=== PATIENT | female | born 1960 | race Caucasian/White ===

== ENCOUNTER → 2016-04-20 | Outpatient (CLI) | payer MEDICARE, MEDICAID ==
[~2016-04-20] MED LIST: ADVA230A INH; ALEN70TA39 PO; ASPI81TA31 OR; COMBAER6 INH; DILT1TAB12 PO; MELOPOW OR; PREG50CA OR; SIMV40TA2 OR; SIMV80TA PO; TYLENOL PM OR; VIT D 2000 OR; VITA2000 PO
--- NOTE | 2016-04-20 14:04 | REP ---
CT of the chest without IV contrast: Comparisons are the low-dose lung screening CT dated 01/27/[address] of the chest on 04/24/2012. There is a nodule in the left upper lobe on image 27 measuring 6 mm in diameter today, 5 mm 01/27/2016. There is a 13 mm lung nodule in the lingula on image 53. This measured 13 mm on 01/27/2016. The tiny nodule identified in the lingula slightly inferior to the 13 mm nodule on01/27/2016 appears to be artifact from interstitium surrounding a bulla on the study today. There is chronic parenchymal scarring medially in the right middle lobe, unchanged from 01/27/2016. There are no infiltrates or effusions. There are numerous small bulla throughout the lung woodruff bilaterally particularly in the upper lobes, compatible with bullous emphysema, unchanged. There is no mediastinal adenopathy. In the absence of IV contrast the study is insensitive for hilar adenopathy. There is no axillary adenopathy. The unenhanced thoracic aorta is unremarkable. Cardiac size is normal. There is no pericardial effusion. The visualized upper abdominal contents are unremarkable. There is no adrenal mass. Impression: 6 mm right upper lobe nodule. 13 mm nodule in the lingula. Chronic parenchymal scarring medially in the right middle lobe. Bullous emphysema. No acute infiltrate or effusion. No adenopathy. Consideration might be given to PET scan for further evaluation. Signed by Rajiv Rae MD 04/20/2016 01:56 P
== END ==
LOC: M RAD 12:37
PROVIDERS: ATTEND Internal Medicine Pulmonary Disease
DX: R91.8 Other nonspecific abnormal finding of lung field (principal); J43.9 Emphysema, unspecified

== ENCOUNTER → 2016-05-25 | Outpatient (REF) | payer MEDICARE, MEDICAID ==
[2016-05-25 14:02] LABS: BASO % 0.3 % (0.0-1.0); EOS # 0.2 K/mm3 (0.0-0.50); EOS % 2.7 % (0.0-3.0); LARGE UNSTAINED CELL # 0.1 K/mm3 (0.0-0.4); LARGE UNSTAINED CELL % 1.4 % (0.0-4.0); LYMPH # 1.3 K/mm3 (1.5-4.5); LYMPH % 15.6 % (24.0-44.0); MEAN CORPUSCULAR HEMOGLOBIN 31.1 pg (27.0-33.0); MEAN CORPUSCULAR HGB CONC 33.9 g/dl (32.0-36.5); MEAN CORPUSCULAR VOLUME 91.7 fl (80.0-96.0); MONO # 0.3 K/mm3 (0.0-0.8); MONO % 3.7 % (0.0-5.0); NEUTROPHILS # 6.1 K/mm3 (1.8-7.7); NEUTROPHILS % 76.4 % (36.0-66.0); PLATELET COUNT, AUTOMATED 212 k/mm3 (150-450); RED CELL DISTRIBUTION WIDTH 12.5 % (11.5-14.5)
[2016-05-25 14:04] LABS: ALBUMIN 4.4 GM/DL (3.2-5.2); ALBUMIN/GLOBULIN RATIO 1.42 (1.00-1.93); ALKALINE PHOSPHATASE 82 U/L (45-117); ALT/SGPT 39 U/L (12-78); ANION GAP 9 MEQ/L (8-16); AST/SGOT 26 U/L (15-37); BILIRUBIN,TOTAL 0.4 MG/DL (0.2-1.0); BLOOD UREA NITROGEN 14 MG/DL (7-18); CALCIUM LEVEL 9.2 MG/DL (8.5-10.1); CARBON DIOXIDE LEVEL 28 MEQ/L (21-32); CHLORIDE LEVEL 105 MEQ/L (98-107); CHOLESTEROL LEVEL 218 MG/DL (<200); CREATININE FOR GFR 0.82 MG/DL (0.55-1.02); GLOMERULAR FILTRATION RATE > 60.0 (>51); GLUCOSE, FASTING 108 MG/DL (70-105); MAGNESIUM LEVEL 2.1 MG/DL (1.8-2.4); SODIUM LEVEL 142 MEQ/L (136-145); TOTAL PROTEIN 7.5 GM/DL (6.4-8.2); TRIGLYCERIDES LEVEL 75 MG/DL (<150)
== END ==
LOC: M SFHCPLAZ 12:15
PROVIDERS: ATTEND Family Medicine
DX: E78.2 Mixed hyperlipidemia (principal); I10 Essential (primary) hypertension; K21.9 Gastro-esophageal reflux disease without esophagitis; E55.9 Vitamin D deficiency, unspecified
CPT/HCPCS: 36415; 80053; 80061; 82306; 83735; 83970; 85025; 86677; G0463

== ENCOUNTER → 2016-07-28 | Outpatient (CLI) | payer MEDICARE, MEDICAID ==
--- NOTE | 2016-07-28 14:15 | REP ---
CT of the chest without IV contrast: Comparisons are the chest CT of 03/01/20202078 low-dose lung screening chest CT of 01/27 2016. There is a left upper lobe lung nodule on image 27 today measuring 7 mm (6 mm and 04/20/2016, 5 mm 01/27/2016). There is a nodule in the lingula on image 54 measuring 13 mm (13 mm, 01/27/2016 and 13 mm 04/20/2016). Just inferior to this in the lingula on image 56 there is interstitial vasculature surrounding a bulla within artifactual appearance of a nodular density. This is unchanged from both prior studies. In the medial segment of the right middle lobe. There is chronic parenchymal scarring, unchanged from both prior studies. There are no acute infiltrates or effusions. Multiple lung bullae are again identified, particularly in the upper lobes, unchanged, compatible with bullous emphysema. There is no mediastinal adenopathy. This is unchanged. In the absence of IV contrast the study is insensitive for hilar adenopathy. There is no axillary adenopathy. The unenhanced thoracic aorta is unremarkable and unchanged. Cardiac size is normal, unchanged. The visualized upper abdominal contents are unremarkable and unchanged. There is no adrenal mass. Impression: The nodule in the left upper lobe on image 27 appears to be gradually enlarging. The nodule in the lingula is unchanged in size. There is stable chronic parenchymal scarring in the medial segment of the right middle lobe. Bullous emphysema is again identified. There is no adenopathy, acute infiltrate or effusion. Signed by Rajiv Rae MD 07/28/2016 02:06 P
== END ==
LOC: M RAD 11:25
PROVIDERS: ATTEND Internal Medicine Pulmonary Disease
DX: R91.8 Other nonspecific abnormal finding of lung field (principal); J43.9 Emphysema, unspecified

== ENCOUNTER → 2016-08-10 | Outpatient (REF) | payer MEDICARE, MEDICAID ==
[2016-08-10 14:10] LABS: INR 0.86
[2016-08-14 00:06] LABS: BLASTOMYCES ANTIBODY LEVEL Negative (Neg:<1:1); CRYPTOCOCCUS ANTIGEN SER Negative (Negative); HISTOPLASMOSIS ANTIBODY Negative (Neg:<1:1)
[2016-08-18 08:50] LABS: COCCIDIOMYCOSIS ANTIBODY NEGATIVE (NEGATIVE)
== END ==
LOC: M LAB REF 13:32
PROVIDERS: ATTEND Internal Medicine Pulmonary Disease
DX: R91.8 Other nonspecific abnormal finding of lung field (principal)

== ENCOUNTER → 2016-08-26 | Outpatient (CLI) | payer MEDICARE, MEDICAID ==
[~2016-08-26] MED LIST changes: +LIDOCAINE 1% MDV 20ML VIAL As Ordered ONE
--- NOTE | 2016-08-26 10:24 | REP ---
PA CHEST X-RAY: Single view inspiration. HISTORY: Post needle biopsy left upper lobe nodule. Comparison study April 24, 2012. FINDINGS: There is a large parenchymal opacity at the level of the biopsy site in the left midlung zone 8.8 cm in greatest diameter consistent with a post biopsy parenchymal hemorrhage. There is no evidence of pneumothorax. Heart is not enlarged. Otherwise no acute disease. IMPRESSION: Large alveolar opacity at the biopsy site representing parenchymal hemorrhage. Recommend 2-hour followup repeat chest x-ray. No evidence of pneumothorax. Signed by Terry Kang MD 08/26/2016 03:31 P
--- NOTE | 2016-08-26 12:39 | REP ---
CHEST X-RAY: SINGLE VIEW HISTORY: Status post lung biopsy followup. Comparison study is from 9:57 a.m. on this date. FINDINGS: The alveolar infiltrate representing post-biopsy parenchymal hemorrhage is again seen in the left mid lung zone. This has not progressed. There is no visible pneumothorax. Pleural angles are sharp. The lungs remain somewhat hyperinflated. IMPRESSION: Stable left upper lobe needle biopsy associated parenchymal hemorrhage. No pneumothorax seen. Signed by Terry Kang MD 08/26/2016 03:33 P
--- NOTE | 2016-08-26 14:05 | REP ---
CT GUIDED LEFT LUNG BIOPSY: The procedure was performed by Taina HNASON under the direct supervision of Dr. Kang. The procedure along with its risks, benefits and complications were discussed with the patient. Informed consent was obtained both verbally and written. The patient was placed in an supine position on the CT table. The left lung lesion was localized under CT guidance. A procedural time-out was performed to identify the correct patient, appropriate site and appropriate procedure. The patient was prepped and draped in the usual sterile fashion. 1% Xylocaine was administered to the biopsy site to achieve anesthesia. The biopsy guide needle was inserted under CT guidance and advanced to the site of the lesion. The imo.im biopsy device was passed through the guide needle and four core samples were obtained. The biopsy guide needle was then removed, hemostasis was achieved and a soft dressing was applied to the entry site. Post procedural imaging revealed a moderate amount of parenchymal hemorrhage in the lingular segment left upper lobe adjacent to the biopsy. Follow-up chest x-ray is performed. . The patient tolerated the procedure well and was sent to the recovery area for post procedural observation. The patient was discharged home with appropriate post procedural orders. Reviewed by MARGIE Tracey 08/26/2016 02:13 PEdited and Signed by Terry Kang MD 08/26/2016 03:42 P
== END ==
LOC: M RADPRO 08:04
PROVIDERS: ATTEND Internal Medicine Pulmonary Disease
DX: C34.12 Malignant neoplasm of upper lobe, left bronchus or lung (principal); F17.218 Nicotine dependence, cigarettes, with other nicotine-induced disorders; G89.29 Other chronic pain; E78.00 Pure hypercholesterolemia, unspecified; M47.812 Spondylosis without myelopathy or radiculopathy, cervical region; R42 Dizziness and giddiness; J44.9 Chronic obstructive pulmonary disease, unspecified; Z79.899 Other long term (current) drug therapy; Z79.82 Long term (current) use of aspirin; Z79.51 Long term (current) use of inhaled steroids; Z88.8 Allergy status to other drugs, medicaments and biological substances

== ENCOUNTER → 2016-08-27 | Outpatient (CLI) | payer MEDICARE, MEDICAID ==
[~2016-08-27] MED LIST changes: -LIDOCAINE 1% MDV 20ML VIAL As Ordered ONE
--- NOTE | 2016-08-27 11:20 | REP ---
Clinical: Hemoptysis. Technique: PA and lateral. Comparison: 08/26/2016. Findings: Consolidation involving the basilar left upper lobe is appreciated. Remainder of lung woodruff are clear. No pneumothorax. Mediastinum and cardiac silhouette normal. Impression: Basilar left upper lobe infiltrate. Signed by Teja Tobar MD 08/27/2016 11:10 A
== END ==
LOC: M RAD 10:00
PROVIDERS: ATTEND Internal Medicine Pulmonary Disease
DX: R04.2 Hemoptysis (principal)

== ENCOUNTER → 2016-09-01 | Outpatient (CLI) | payer MEDICARE, MEDICAID ==
--- NOTE | 2016-09-01 14:52 | REP ---
Clinical: Hemoptysis . Comparison: 08/27/2016 . Technique: PA and lateral. Findings: The mediastinum and cardiac silhouette are normal. The lung woodruff demonstrate chronic interstitial changes without acute consolidation, effusion, or pneumothorax. The skeletal structures are intact and normal. Impression: 1. No acute cardiopulmonary process. Signed by Teja Tobar MD 09/01/2016 02:43 P
== END ==
LOC: M SMT 14:14
PROVIDERS: ATTEND Internal Medicine Pulmonary Disease
DX: R04.2 Hemoptysis (principal)

== ENCOUNTER → 2016-09-08 | Outpatient (CLI) | payer MEDICARE, MEDICAID ==
--- NOTE | 2016-09-08 21:25 | REP ---
PET/CT: History: Restaging malignant neoplasm left upper lobe. The patient underwent CT guided needle biopsy for left upper lobe nodule on August 26, 2016. Diagnosis adenocarcinoma. Comparisons: Chest CT study dated July 28, 2016. TECHNIQUE: 54 minutes following the intravenous injection of a 9.9 mCi dose of F-18 FDG, three-dimensional PET scintigraphy is acquired from the skull base to the proximal thighs. Triplanar noncontrast CT scanning is acquired through the same anatomic range for attenuation correction, and image registration with scan parameters optimized to minimize radiation exposure to the patient. PET scintigraphy and CT datasets were fused and displayed on a workstation with multiplanar and projection display capability. PET/CT Findings: The patient's biopsy-proven left upper lobe spiculated nodule shows hypermetabolic uptake with maximum standard uptake value of 5.2. There is a second focus of discernible FDG accumulation in the smaller nodule in the left upper lobe higher up in the chest. This nodule is only 7 mm in size. Maximum standard uptake value in it is 1.7. This must be considered potentially suspicious as well, especially given its small size. There is an additional augustina focus of hypermetabolic uptake in the right middle lobe bronchus at the right anteroinferior hilus. Maximum standard uptake value here is 5.4 and the bronchus appears to be obstructed on accompanying CT. This is suspicious as well. No other abnormal hypermetabolic uptake is seen in the thorax. No adrenal hypermetabolic uptake is seen. In the abdomen and pelvis normal distribution of FDG tracer is seen. No abnormal hypermetabolic uptake is seen in the abdomen or pelvis. Impression: There are three suspicious areas of uptake in the chest cavity. One of these corresponds to the biopsy proven adenocarcinoma. The other is in the smaller known left upper lobe nodule. The third is in an obstructed right middle lobe bronchus at the right hilar level. These are all considered suspicious for malignancy. Signed by Terry Kang MD 09/09/2016 09:31 A
== END ==
LOC: M PLARAD 08:27
PROVIDERS: ATTEND Internal Medicine Pulmonary Disease
DX: C34.12 Malignant neoplasm of upper lobe, left bronchus or lung (principal)
CPT/HCPCS: 78815; A9552

== ENCOUNTER → 2016-09-09 | Outpatient (CLI) | payer MEDICARE, MEDICAID ==
--- NOTE | 2016-09-09 16:08 | RADONC ---
RADIATION ONCOLOGY CONSULTATION NOTE DATE: 09/09/2016 CHART NUMBER: DIAGNOSIS: Left lung cancer. STAGE: IIIB, T4N3M0 verus stage IV, [id number]. ECOG PERFORMANCE STATUS: 0. CONSULTATION NOTE: Ms. 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 HISTORY OF PRESENT ILLNESS: The patient was in her usual state of health until low dose screening lung scan was done on 01/27/2016 that showed a suspicious 13 mm nodule in the lingular segment of the left upper lobe and a second new 5 mm nodule in the left upper lobe elsewhere. On 08/26/2016 the patient underwent a CT guided left lingular lung nodule biopsy and pathology revealed a moderate to poorly differentiated adenocarcinoma of the lung. The tumor showed PD-L1 expression. A PET scan was done on 09/08/2016 and the preliminary report shows three suspicious areas in the chest cavity. One corresponds to the biopsy proven adenocarcinoma. The other is a smaller left upper lobe nodule which was also known. The third is an obstructed right middle lobe bronchus at the right hilar level. These were all considered suspicious for malignancy. PAST MEDICAL HISTORY: The patient's past medical history is positive for hypertension, emphysema, arthritis, and bronchitis. ALLERGIES: The patient is allergic to LYRICA and CHANTIX. SOCIAL HISTORY: The patient smokes one pack of cigarettes per day for the last 39 years. She does not abuse alcohol. FAMILY HISTORY: The patient's family history is positive for a paternal grandmother with throat cancer, a paternal cousin with stomach cancer, a maternal aunt with esophageal cancer, a paternal uncle with stomach cancer, and a paternal aunt with anal cancer. She also has cousins with lung cancer. REVIEW OF SYSTEMS: The patient's review of systems is positive for some vertigo as well as physical limitations secondary to decreased energy and generalized weakness. She does have shortness of breath. She is not using nasal oxygen. She denies nausea, vomiting, fevers, chills, night sweats, diplopia, headaches, anxiety, or depression, anorexia, weight loss, visual disturbances, chest pain, bowel difficulties, bone pain, or neurologic problems. PHYSICAL EXAMINATION: The patient is a well-developed, well-nourished, female in no acute distress. HEENT exam is normocephalic, atraumatic. Extraocular movements are intact. There is no palpable cervical, supraclavicular, infraclavicular, axillary, or inguinal lymphadenopathy present. Lungs are clear to auscultation and percussion. Heart has a regular rate and rhythm. Abdomen is benign with no hepatosplenomegaly, masses, or tenderness. Skeletal examination reveals no tenderness to pressure or percussion of the bony skeleton. Extremities reveal no clubbing, cyanosis, or edema. Neurologic exam is grossly intact, as is the remainder of the physical examination. ASSESSMENT: The patient is present to us for discussion of her various therapeutic options. I have set her up for discussion at our multidisciplinary tumor conference. This will be next Tuesday. In addition, I am scheduling her to be seen by our medical oncologists to discuss her systemic options. Following discussion at Tuesday's tumor conference and her consultation with our medical oncologists final recommendations will be made. I have set her up to see me in followup following the tumor board and medical oncology consultation. Thank you once again for allowing us to participate in the care of this very pleasant woman. If I could be of any further assistance or provide you with any information, please feel free to contact me at anytime. I will keep you informed of any new develops as they occur. cc: MD Terrance Schmid MD Ryan Tyler, MD
--- NOTE | 2016-09-16 10:56 | RADONC ---
RADIATION ONCOLOGY RE-CONSULTATION NOTE DATE: 09/16/2016 CHART NUMBER: [id number] DIAGNOSIS: Left lung cancer. STAGE: 4, Y3G2K2o. ECOG PERFORMANCE STATUS: 0. RE-CONSULTATION NOTE: Ms. Robles is a very pleasant 56-year-old white female with the diagnosis of what appears to be a stage IV, [id number], moderate to poorly differentiated adenocarcinoma of the left upper lobe and contralateral bronchus who initially presented for discussion of possible external beam radiation therapy. I presented this patient at our multidisciplinary tumor conference yesterday. The patient has very poor pulmonary functions with an FEV-1 of 0.9 and a diffusion capacity of just 33% of predicted. The woodruff required to incorporate all three lesions would be prohibitive and clearly the patient could not tolerate such treatment. In light of this, a recommendation was unanimously decided upon for systemic therapy. The patient is scheduled to be seen in medical oncology next week for further discussion. She is scheduled for an MRI of the brain to be done today. The results of that may change our recommendations. If however the MRI is clean then systemic therapy is quite reasonable. The patient does show a PD-L1 score of 70% which is a high expression. In light of the fact that she will not be receiving radiation. I have discharged this patient from our followup at this time. Should conditions change, please feel free to refer her back we would be glad to see her at anytime. cc: MD Terrance Schmid MD Ryan Tyler, MD
== END ==
LOC: M ONCR 08:58
PROVIDERS: ATTEND Radiology Radiation Oncology
DX: C34.12 Malignant neoplasm of upper lobe, left bronchus or lung (principal); I10 Essential (primary) hypertension; J43.9 Emphysema, unspecified; M19.90 Unspecified osteoarthritis, unspecified site; Z88.8 Allergy status to other drugs, medicaments and biological substances; Z87.891 Personal history of nicotine dependence

== ENCOUNTER → 2016-09-13 | Outpatient (REF) | payer MEDICARE, MEDICAID ==
[2016-09-13 17:43] LABS: INR 0.94
== END ==
LOC: M LAB REF 16:43
PROVIDERS: ATTEND Internal Medicine Medical Oncology
DX: C34.12 Malignant neoplasm of upper lobe, left bronchus or lung (principal)

== ENCOUNTER → 2016-09-16 | Outpatient (CLI) | payer MEDICARE, MEDICAID | LOC: M ONCR 10:29 | PROVIDERS: ATTEND Radiology Radiation Oncology | DX: C34.90 Malignant neoplasm of unspecified part of unspecified bronchus or lung (principal) ==

== ENCOUNTER → 2016-09-16 | Outpatient (CLI) | payer MEDICARE, MEDICAID ==
--- NOTE | 2016-09-16 13:29 | REP ---
MR BRAIN WITHOUT AND WITH CONTRAST: HISTORY: Lung carcinoma. CONTRAST: ProHance 10 mL. COMPARISON: 10/30/2013. There are no areas of abnormal signal intensity in the brain. There is intraparenchymal hemorrhage, infarct, mass, or midline shift. There is no abnormal enhancement. The ventricular system is normal in appearance. There is no extracerebral collection. The sinuses are clear. IMPRESSION: There is no intracranial lesion. Signed by Andrés Love MD 09/16/2016 01:38 P
== END ==
LOC: M RAD 09:34
PROVIDERS: ATTEND Nurse Practitioner Family
DX: C34.90 Malignant neoplasm of unspecified part of unspecified bronchus or lung (principal)
CPT/HCPCS: 70553; A9576; G0463

== ENCOUNTER → 2016-09-20 | Outpatient (CLI) | payer MEDICARE, MEDICAID ==
--- NOTE | 2016-09-20 14:21 | REP ---
WHOLE BODY BONE SCAN: Following the intravenous administration of 21.6 mCi of technetium-99m MDP, patient's whole body is imaged in the anterior and posterior projections with additional oblique images of the thoracic and pelvic regions performed as well as lateral views of the calvarium and knees. Small focus of increased uptake along the superolateral orbital rims is of doubtful significance with no suspected underlying pathologic abnormality. There appears to be mild diffuse arthritic uptake in the mid thoracic spine region and also at the lumbosacral junction. There is no compelling scintigraphic evidence of osseous metastases. Renal and bladder activity are seen. IMPRESSION: Arthritic uptake in the spine particularly in the mid thoracic region. No compelling scintigraphic evidence of osseous metastases. Signed by Rajiv Fulton MD 09/20/2016 05:25 P
== END ==
LOC: M RAD 10:15
PROVIDERS: ATTEND Nurse Practitioner Family
DX: C34.90 Malignant neoplasm of unspecified part of unspecified bronchus or lung (principal); M46.94 Unspecified inflammatory spondylopathy, thoracic region
CPT/HCPCS: 78306; A9503

== ENCOUNTER → 2016-09-24 | Outpatient (REF) | payer MEDICARE, MEDICAID | LOC: M LAB REF 13:39 | PROVIDERS: ATTEND Internal Medicine Medical Oncology | DX: C34.90 Malignant neoplasm of unspecified part of unspecified bronchus or lung (principal) ==

== ENCOUNTER → 2016-10-15 | Outpatient (REF) | payer MEDICARE, MEDICAID | LOC: M LAB REF 13:50 | PROVIDERS: ATTEND Internal Medicine Medical Oncology | DX: C34.90 Malignant neoplasm of unspecified part of unspecified bronchus or lung (principal) ==

== ENCOUNTER → 2016-10-20 | Outpatient (CLI) | payer MEDICARE, MEDICAID ==
[~2016-10-20] MED LIST changes: +ISOVUE-370 76% 100ML VIAL (Q9967) As Ordered ONE
--- NOTE | 2016-10-21 06:39 | REP ---
REASON: Dyspnea. COMPARISON: Standard CT chest 07/28/2016. CONTRAST: 100 mL Isovue 370. There is excellent visualization of the pulmonary arterial vasculature. There are no focal filling defects present that would be considered consistent with pulmonary emboli. The mediastinum and pulmonary bassem are unchanged showing no evidence of a mass or adenopathy. There are no pleural or pericardial effusions. The imaged upper abdomen is unchanged remaining within normal limits. There is no significant change in the appearance of the imaged osseous structures. Evaluation of the lung woodruff again show a spiculated lesion in the lingula status quo along with scattered asymmetric parenchymal densities in conjunction with tiny parenchymal bulla. The left upper lobe spiculated nodule is also unchanged. No new abnormal nodules, masses, or opacities have developed. IMPRESSION: 1. There is no evidence of a PE. 2. Stable abnormal lung field changes as described above. Certainly, neoplastic change cannot be ruled out by this exam. Patient does have a history of lung carcinoma. Signed by Jaleel Sierra DO 10/21/2016 02:39 P
== END ==
LOC: M RAD 16:06
PROVIDERS: ATTEND Internal Medicine Medical Oncology
DX: R05 Cough (principal); R06.02 Shortness of breath; C34.90 Malignant neoplasm of unspecified part of unspecified bronchus or lung
CPT/HCPCS: 71275; Q9967

== ENCOUNTER → 2016-10-27 | Outpatient (CLI) | payer MEDICARE, MEDICAID ==
[~2016-10-27] MED LIST changes: -ISOVUE-370 76% 100ML VIAL (Q9967) As Ordered ONE
--- NOTE | 2016-10-27 11:48 | REP ---
MRI THORACIC SPINE WITHOUT AND WITH CONTRAST: HISTORY: Lung cancer. CONTRAST: ProHance 12 mL. Disc bulges are present at the T1-2, T2-3, T5-6 and T7-8 through T12-L1 levels. There is minimal to mild effacement of the thecal sac without spinal cord compression. A disc bulge and small central disc protrusion are present at the T3-4 level. There is minimal effacement of the thecal sac without spinal cord compression. The T3 neural foramina are patent. A mild size central disc protrusion is present at the T4-5 level. There is minimal deformity of the spinal cord. The T4 neural foramina are patent. A mild disc protrusion central and eccentric to the left is present at the T6-7 level. There is mild effacement of the thecal sac without spinal cord compression. The T6 neural foramina are patent. There is no other disc bulge or herniation. The spinal cord is normal in signal intensity. Increased signal intensity on T2-weighted images is present at the end plates of several mid and lower thoracic vertebral bodies. There is minimal enhancement of the end plates of the T8-12 vertebral bodies. This represents degenerative change. There is an old compression fracture of the T11 vertebral body with minimal height loss. There is no subluxation. IMPRESSION: 1. Multiple disc bulges without spinal cord compression as described above. 2. Disc bulge and small disc protrusion at the T3-4 level without spinal cord compression. 3. Mild size disc protrusion at the T4-5 level with minimal deformity of the spinal cord. 4. Mild size disc protrusion at the T6-7 level without spinal cord compression. 5. Old T11 compression fracture with minimal height loss. Signed by Andrés Love MD 10/27/2016 12:05 P
== END ==
LOC: M RAD 09:17
PROVIDERS: ATTEND Internal Medicine Medical Oncology
DX: Z85.118 Personal history of other malignant neoplasm of bronchus and lung (principal); M25.519 Pain in unspecified shoulder; M51.24 Other intervertebral disc displacement, thoracic region
CPT/HCPCS: 72157; A9576; G0463

== ENCOUNTER → 2016-11-05 | Outpatient (REF) | payer MEDICARE, MEDICAID | LOC: M LAB REF 12:16 | PROVIDERS: ATTEND Internal Medicine Medical Oncology | DX: C34.90 Malignant neoplasm of unspecified part of unspecified bronchus or lung (principal) ==

== ENCOUNTER → 2016-11-15 | Outpatient (REF) | payer MEDICARE, MEDICAID ==
[2016-11-15 16:58] LABS: ALBUMIN 4.1 GM/DL (3.2-5.2); ALBUMIN/GLOBULIN RATIO 1.24 (1.00-1.93); ALKALINE PHOSPHATASE 76 U/L (45-117); ALT/SGPT 32 U/L (12-78); ANION GAP 5 MEQ/L (8-16); AST/SGOT 24 U/L (15-37); BILIRUBIN,TOTAL 0.4 MG/DL (0.2-1.0); BLOOD UREA NITROGEN 12 MG/DL (7-18); CALCIUM LEVEL 9.3 MG/DL (8.5-10.1); CARBON DIOXIDE LEVEL 31 MEQ/L (21-32); CHLORIDE LEVEL 105 MEQ/L (98-107); CHOLESTEROL LEVEL 166 MG/DL (<200); CREATININE FOR GFR 0.75 MG/DL (0.55-1.02); FREE T4 1.25 NG/DL (0.76-1.46); GLOMERULAR FILTRATION RATE > 60.0 (>51); GLUCOSE, FASTING 86 MG/DL (70-105); MAGNESIUM LEVEL 1.9 MG/DL (1.8-2.4); SODIUM LEVEL 141 MEQ/L (136-145); TOTAL PROTEIN 7.4 GM/DL (6.4-8.2); TRIGLYCERIDES LEVEL 60 MG/DL (<150)
[2016-11-15 19:05] LABS: BASO % 0.4 % (0.0-1.0); EOS # 0.3 K/mm3 (0.0-0.50); EOS % 4.7 % (0.0-3.0); LARGE UNSTAINED CELL # 0.1 K/mm3 (0.0-0.4); LARGE UNSTAINED CELL % 1.9 % (0.0-4.0); LYMPH # 1.8 K/mm3 (1.5-4.5); LYMPH % 29.5 % (24.0-44.0); MEAN CORPUSCULAR HEMOGLOBIN 30.1 pg (27.0-33.0); MEAN CORPUSCULAR HGB CONC 32.6 g/dl (32.0-36.5); MEAN CORPUSCULAR VOLUME 92.3 fl (80.0-96.0); MONO # 0.4 K/mm3 (0.0-0.8); MONO % 7.5 % (0.0-5.0); NEUTROPHILS # 3.1 K/mm3 (1.8-7.7); PLATELET COUNT, AUTOMATED 217 k/mm3 (150-450); RED CELL DISTRIBUTION WIDTH 12.5 % (11.5-14.5); WHITE BLOOD COUNT 5.6 K/mm3 (4.0-10.0)
== END ==
LOC: M SFHCCAPE 09:14
PROVIDERS: ATTEND Family Medicine
DX: I10 Essential (primary) hypertension (principal); E78.2 Mixed hyperlipidemia; E55.9 Vitamin D deficiency, unspecified

== ENCOUNTER → 2016-11-26 | Outpatient (REF) | payer MEDICARE, MEDICAID | LOC: M LAB REF 12:39 | PROVIDERS: ATTEND Internal Medicine Medical Oncology | DX: C34.90 Malignant neoplasm of unspecified part of unspecified bronchus or lung (principal) ==

== ENCOUNTER → 2016-12-17 | Outpatient (REF) | payer MEDICARE, MEDICAID ==
[2016-12-17 14:04] LABS: PROLACTIN 6.4 NG/ML
[2016-12-17 14:05] LABS: FOLLICLE STIMULATING HORMONE 73.2 mIU/mL; LUTEINIZING HORMONE 43.9 mIU/mL
[2016-12-17 15:22] LABS: FREE T4 1.45 NG/DL (0.76-1.46)
== END ==
LOC: M LAB REF 13:04
PROVIDERS: ATTEND Internal Medicine Medical Oncology
DX: C34.90 Malignant neoplasm of unspecified part of unspecified bronchus or lung (principal)

== ENCOUNTER → 2017-01-10 | Outpatient (REF) | payer MEDICARE, MEDICAID ==
[2017-01-10 21:35] LABS: FREE T4 1.14 NG/DL (0.76-1.46)
== END ==
LOC: M LAB REF 17:09
PROVIDERS: ATTEND Internal Medicine Medical Oncology
DX: C34.90 Malignant neoplasm of unspecified part of unspecified bronchus or lung (principal)

== ENCOUNTER → 2017-01-17 | Outpatient (CLI) | payer MEDICARE, MEDICAID ==
[~2017-01-17] MED LIST changes: +GASTROGRAFIN SOLUTION 30ML (Q9963) As Ordered ONE; +ISOVUE-370 76% 100ML VIAL (Q9967) As Ordered ONE
--- NOTE | 2017-01-17 17:25 | REP ---
Clinical: Lung cancer for restaging. Technique: Axial contrast enhanced images from the lung bases to the pubic symphysis using oral and 100 ml Isovue 370 intravenous contrast material with precontrast and delayed images of the abdomen as well as coronal and sagittal re-formations. Comparison: 09/16/2011. Findings: Lung bases demonstrate mild chronic changes. Visualized heart and pericardium are normal. Liver, spleen, pancreas, gallbladder, bilateral adrenal glands and kidneys are normal. The enteric system is without obstruction or acute inflammatory process. Pelvis demonstrates normal bladder and evidence for prior hysterectomy. No ascites. No adenopathy. No solitary mass lesion. Atherosclerotic changes of the aorta and vasculature noted. Musculoskeletal structures demonstrate degenerative changes without focal osseous abnormality. Impression: No acute abdominopelvic pathology appreciated. Signed by Teja Tobar MD 01/17/2017 05:17 P
--- NOTE | 2017-01-17 17:33 | REP ---
Clinical: History of lung cancer for restaging. Technique: Axial contrast enhanced images from the thoracic inlet to the upper abdomen using 100 ml Isovue 370 intravenous contrast material with coronal and sagittal re-formations. Comparison: 10/20/2016, 12/06/2007 Findings: Lung woodruff demonstrate moderate COPD/emphysematous changes with minimal scattered interstitial changes and scarring primarily noted in the right middle lobe and lingula. The 13 mm mass with spiculated margins/scarring in the left upper lobe on examination dated 10/20/2016 is no longer present. No new area of consolidation, significant nodule or mass lesion appreciated. No pleural effusion/reaction or pneumothorax. Tracheobronchial tree is patent. No axillary, hilar, or mediastinal adenopathy. Mediastinum demonstrates normal / stable pulmonary vasculature and atherosclerotic changes to the thoracic aorta and coronary arteries without aortic aneurysm. No cardiomegaly or pericardial effusion. Surrounding musculoskeletal structures are intact. Limited upper abdomen demonstrates normal bilateral adrenal glands. Impression: 1. COPD/emphysematous changes with scattered interstitial changes as well as scarring in the right middle lobe and lingula. Previously identified 13 mm mass with spiculated margins in the left upper lobe is no longer present. 2. No new, significant consolidation, nodule or mass lesion identified. 3. No adenopathy. Signed by Teja Tobar MD 01/17/2017 05:25 P
== END ==
LOC: M RAD 14:51
PROVIDERS: ATTEND Internal Medicine Medical Oncology
DX: C34.90 Malignant neoplasm of unspecified part of unspecified bronchus or lung (principal)
CPT/HCPCS: 71260; 74178; Q9963; Q9967

== ENCOUNTER → 2017-02-18 | Outpatient (REF) | payer MEDICARE, MEDICAID ==
[~2017-02-18] MED LIST changes: -GASTROGRAFIN SOLUTION 30ML (Q9963) As Ordered ONE; -ISOVUE-370 76% 100ML VIAL (Q9967) As Ordered ONE
[2017-02-18 13:49] LABS: FREE T4 0.87 NG/DL (0.76-1.46)
== END ==
LOC: M LAB REF 13:05
PROVIDERS: ATTEND Internal Medicine Medical Oncology
DX: C34.90 Malignant neoplasm of unspecified part of unspecified bronchus or lung (principal)

== ENCOUNTER → 2017-03-11 | Outpatient (REF) | payer MEDICARE, MEDICAID ==
[2017-03-11 14:38] LABS: FREE T4 1.07 NG/DL (0.76-1.46)
[2017-03-11 16:38] LABS: TOTAL T3 105.7 NG/DL (60.0-181.0)
== END ==
LOC: M LAB REF 13:12
DX: C34.90 Malignant neoplasm of unspecified part of unspecified bronchus or lung (principal); Z79.899 Other long term (current) drug therapy
CPT/HCPCS: 84443

== ENCOUNTER → 2017-03-23 | Outpatient (CLI) | payer MEDICARE, MEDICAID | LOC: M PLARAD 08:26 | DX: C34.90 Malignant neoplasm of unspecified part of unspecified bronchus or lung (principal) | CPT/HCPCS: 78815 ==

== ENCOUNTER → 2017-04-01 | Outpatient (REF) | payer MEDICARE, MEDICAID ==
[2017-04-01 13:24] LABS: FREE T4 1.15 NG/DL (0.76-1.46)
[2017-04-01 15:03] LABS: TOTAL T3 100.6 NG/DL (60.0-181.0)
== END ==
LOC: M LAB REF 12:03
DX: C34.90 Malignant neoplasm of unspecified part of unspecified bronchus or lung (principal); Z79.899 Other long term (current) drug therapy
CPT/HCPCS: 84443

== ENCOUNTER → 2017-04-22 | Outpatient (REF) | payer MEDICARE, MEDICAID | LOC: M LAB REF 13:38 | DX: C34.90 Malignant neoplasm of unspecified part of unspecified bronchus or lung (principal); Z79.899 Other long term (current) drug therapy; Z13.29 Encounter for screening for other suspected endocrine disorder | CPT/HCPCS: 84443 ==

== ENCOUNTER → 2017-05-11 | Outpatient (REF) | payer MEDICARE, MEDICAID ==
[2017-05-11 19:08] LABS: ALBUMIN/GLOBULIN RATIO 1.33 (1.00-1.93); ALKALINE PHOSPHATASE 68 U/L (45-117); ALT/SGPT 21 U/L (12-78); ANION GAP 8 MEQ/L (8-16); AST/SGOT 23 U/L (7-37); BILIRUBIN,TOTAL 0.4 MG/DL (0.2-1.0); BLOOD UREA NITROGEN 10 MG/DL (7-18); CALCIUM LEVEL 8.7 MG/DL (8.5-10.1); CARBON DIOXIDE LEVEL 27 MEQ/L (21-32); CHLORIDE LEVEL 109 MEQ/L (98-107); CHOLESTEROL LEVEL 173 MG/DL (<200); CHOLESTEROL RISK RATIO 3.604 (<5); CREATININE FOR GFR 0.82 MG/DL (0.55-1.30); GLOMERULAR FILTRATION RATE > 60.0 (>51); GLUCOSE, FASTING 93 MG/DL (70-100); HDL CHOLESTEROL 48 MG/DL (>40); LDL CHOLESTEROL 103.4 MG/DL (<100); MAGNESIUM LEVEL 1.8 MG/DL (1.8-2.4); NON-HDL-C 125 MG/DL; POTASSIUM SERUM 3.8 MEQ/L (3.5-5.1); SODIUM LEVEL 144 MEQ/L (136-145); TRIGLYCERIDES LEVEL 108 MG/DL (<150)
[2017-05-11 19:13] LABS: PTH INTACT 27.7 PG/ML (18.5-88.0); THYROID PEROXIDASE ANTIBODY < 28.0 U/ML (<60.0); TOTAL 25(OH) VITAMIN D 29.2 NG/ML (30.0-100.0)
[2017-05-11 19:27] LABS: BASO % 0.3 % (0.0-1.0); EOS # 0.2 10^3/uL (0.0-0.50); EOS % 4.1 % (0.0-3.0); HEMATOCRIT 40.5 % (36.0-47.0); HEMOGLOBIN 13.5 g/dl (12.0-16.0); IMMATURE GRANULOCYTE % 0.2 % (0-3.0); LYMPH # 1.7 10^3/uL (1.5-4.5); LYMPH % 29.4 % (24.0-44.0); MEAN CORPUSCULAR HEMOGLOBIN 30.5 pg (27.0-33.0); MEAN CORPUSCULAR HGB CONC 33.3 g/dl (32.0-36.5); MEAN CORPUSCULAR VOLUME 91.6 fl (80.0-96.0); MONO # 0.5 10^3/uL (0.0-0.8); MONO % 8.9 % (0.0-5.0); NEUTROPHILS # 3.3 10^3/uL (1.8-7.7); NEUTROPHILS % 57.1 % (36.0-66.0); PLATELET COUNT, AUTOMATED 202 10^3/uL (150-450); RED BLOOD COUNT 4.42 10^6/uL (4.00-5.40); RED CELL DISTRIBUTION WIDTH 13.2 % (11.5-14.5); WHITE BLOOD COUNT 5.8 10^3/uL (4.0-10.0)
== END ==
LOC: M SFHCPLAZ 08:59
DX: E55.9 Vitamin D deficiency, unspecified (principal); I10 Essential (primary) hypertension; E78.2 Mixed hyperlipidemia
CPT/HCPCS: 83735

== ENCOUNTER → 2017-05-13 | Outpatient (REF) | payer MEDICARE, MEDICAID | LOC: M LAB REF 12:56 | DX: C34.90 Malignant neoplasm of unspecified part of unspecified bronchus or lung (principal); Z79.899 Other long term (current) drug therapy | CPT/HCPCS: 84443 ==

== ENCOUNTER → 2017-06-02 | Outpatient (REF) | payer MEDICARE, MEDICAID | LOC: M LAB REF 16:44 | DX: C34.00 Malignant neoplasm of unspecified main bronchus (principal); E07.9 Disorder of thyroid, unspecified | CPT/HCPCS: 84443 ==

== ENCOUNTER → 2017-06-24 | Outpatient (REF) | payer MEDICARE, MEDICAID | LOC: M LAB REF 14:02 | DX: Z79.899 Other long term (current) drug therapy (principal) | CPT/HCPCS: 84443 ==

== ENCOUNTER → 2017-06-29 | Outpatient (CLI) | payer MEDICARE, MEDICAID | LOC: M PLARAD 09:33 | DX: C34.92 Malignant neoplasm of unspecified part of left bronchus or lung (principal) | CPT/HCPCS: 78815 ==

== ENCOUNTER → 2017-07-15 | Outpatient (REF) | payer MEDICARE, MEDICAID | LOC: M LAB REF 12:24 | DX: Z51.81 Encounter for therapeutic drug level monitoring (principal); Z79.899 Other long term (current) drug therapy ==

== ENCOUNTER → 2017-07-15 | Outpatient (CLI) | payer MEDICARE, MEDICAID | LOC: M WHC 11:47 | DX: Z12.31 Encounter for screening mammogram for malignant neoplasm of breast (principal); C34.92 Malignant neoplasm of unspecified part of left bronchus or lung; Z78.0 Asymptomatic menopausal state; Z51.81 Encounter for therapeutic drug level monitoring; Z79.899 Other long term (current) drug therapy | CPT/HCPCS: 84443 ==

== ENCOUNTER → 2017-08-05 | Outpatient (REF) | payer MEDICARE, MEDICAID | LOC: M LAB REF 13:18 | DX: C34.12 Malignant neoplasm of upper lobe, left bronchus or lung (principal); C78.01 Secondary malignant neoplasm of right lung; Z79.899 Other long term (current) drug therapy | CPT/HCPCS: 84443 ==

== ENCOUNTER → 2017-09-16 | Outpatient (REF) | payer MEDICARE, MEDICAID | LOC: M LAB REF 13:05 | DX: Z51.81 Encounter for therapeutic drug level monitoring (principal); C34.12 Malignant neoplasm of upper lobe, left bronchus or lung; C78.01 Secondary malignant neoplasm of right lung; Z79.899 Other long term (current) drug therapy | CPT/HCPCS: 84443 ==

== ENCOUNTER → 2017-09-23 | Outpatient (REF) | payer MEDICARE, MEDICAID | LOC: M LAB REF 13:11 | DX: C34.12 Malignant neoplasm of upper lobe, left bronchus or lung (principal); C78.01 Secondary malignant neoplasm of right lung; Z79.899 Other long term (current) drug therapy | CPT/HCPCS: 84443 ==

== ENCOUNTER → 2017-10-13 | Outpatient (CLI) | payer MEDICARE, MEDICAID | LOC: M WHC 13:48 | DX: M85.851 Other specified disorders of bone density and structure, right thigh (principal); M85.852 Other specified disorders of bone density and structure, left thigh; M85.88 Other specified disorders of bone density and structure, other site | CPT/HCPCS: 77080 ==

== ENCOUNTER → 2017-10-14 | Outpatient (REF) | payer MEDICARE, MEDICAID ==
[2017-10-14 13:44] LABS: THYROID STIMULATING HORMONE 0.975 uIU/ML (0.358-3.740)
== END ==
LOC: M LAB REF 13:07
DX: C34.12 Malignant neoplasm of upper lobe, left bronchus or lung (principal); C78.01 Secondary malignant neoplasm of right lung; E07.9 Disorder of thyroid, unspecified
CPT/HCPCS: 84443

== ENCOUNTER → 2017-11-04 | Outpatient (REF) | payer MEDICARE, MEDICAID ==
[2017-11-04 14:38] LABS: THYROID STIMULATING HORMONE 0.911 uIU/ML (0.358-3.740)
== END ==
LOC: M LAB REF 13:11
DX: Z51.81 Encounter for therapeutic drug level monitoring (principal); Z79.899 Other long term (current) drug therapy; C34.12 Malignant neoplasm of upper lobe, left bronchus or lung; C78.01 Secondary malignant neoplasm of right lung
CPT/HCPCS: 84443

== ENCOUNTER → 2018-01-13 | Outpatient (CLI) | payer MEDICARE, MEDICAID ==
[~2018-01-13] MED LIST changes: -ADVA230A INH; -ALEN70TA39 PO; -ASPI81TA31 OR; -COMBAER6 INH; -DILT1TAB12 PO; +GASTROGRAFIN SOLUTION 30ML (Q9963) As Ordered; +ISOVUE-370 76% 100ML VIAL (Q9967) As Ordered; -MELOPOW OR; -PREG50CA OR; -SIMV40TA2 OR; -SIMV80TA PO; -TYLENOL PM OR; -VIT D 2000 OR; -VITA2000 PO
== END ==
LOC: M RAD 12:36
DX: R91.8 Other nonspecific abnormal finding of lung field (principal); C34.91 Malignant neoplasm of unspecified part of right bronchus or lung; C34.92 Malignant neoplasm of unspecified part of left bronchus or lung
CPT/HCPCS: Q9963

== ENCOUNTER → 2018-01-16 | Outpatient (REF) | payer MEDICARE, MEDICAID | LOC: M SFHCCAPE 16:50 | DX: J02.9 Acute pharyngitis, unspecified (principal) ==

== ENCOUNTER → 2018-02-09 | Outpatient (REF) | payer MEDICARE, MEDICAID ==
[~2018-02-09] MED LIST changes: +ADVA230A INH; +ALEN70TA57 PO; +ASPI1TAB PO; +ASPI81TA31 OR; +COMBAER6 INH; +DILT1TAB12 PO; -GASTROGRAFIN SOLUTION 30ML (Q9963) As Ordered; +INCR1INH INH; -ISOVUE-370 76% 100ML VIAL (Q9967) As Ordered; +LEVO50TA5 PO; +MELOPOW OR; +PREG50CA OR; +ROSU20TA4 OR; +SIMV40TA2 OR; +SIMV80TA13 PO; +TYLENOL PM OR; +VIT D 2000 OR; +VITA2000 PO
[2018-02-09 17:03] LABS: ALBUMIN 3.9 GM/DL (3.2-5.2); ALT/SGPT 23 U/L (12-78); BILIRUBIN,TOTAL 0.5 MG/DL (0.2-1.0); BLOOD UREA NITROGEN 10 MG/DL (7-18); C REACTIVE PROTEIN QUANTITATIV < 0.30 MG/DL (0.00-0.30); CALCIUM LEVEL 8.6 MG/DL (8.5-10.1); CARBON DIOXIDE LEVEL 27 MEQ/L (21-32); CHLORIDE LEVEL 109 MEQ/L (98-107); CHOLESTEROL LEVEL 166 MG/DL (<200); CHOLESTEROL RISK RATIO 2.964 (<5); CPK CREATINE PHOSPHOKINASE 185 U/L (26-192); CREATININE FOR GFR 0.77 MG/DL (0.55-1.30); GLOMERULAR FILTRATION RATE > 60.0 (>51); GLUCOSE, FASTING 100 MG/DL (70-100); HDL CHOLESTEROL 56 MG/DL (>40); LDL CHOLESTEROL 92 MG/DL (<100); NON-HDL-C 110 MG/DL; SODIUM LEVEL 143 MEQ/L (136-145); TOTAL PROTEIN 6.8 GM/DL (6.4-8.2); TRIGLYCERIDES LEVEL 92 MG/DL (<150)
== END ==
LOC: M SFHCCAPE 07:20
PROVIDERS: ATTEND Family Medicine
DX: E78.2 Mixed hyperlipidemia (principal)

== ENCOUNTER → 2018-02-14 | Outpatient (CLI) | payer MEDICARE, MEDICAID ==
--- NOTE | 2018-02-14 20:26 | REP ---
PET/CT: History: Restaging. Stage III A adenocarcinoma left lung. Stage II A presumptive non-small cell right lung carcinoma. New nodules. Comparisons: Comparison chest CT January 13, 2018. Comparison PET-CT study June 29, 2017 and March 23, 2017. TECHNIQUE: 1 hour and 3 minutes following the intravenous injection of a 7.4 mCi dose of F-18 FDG, three-dimensional PET scintigraphy is acquired from the skull base to the proximal thighs. Triplanar noncontrast CT scanning is acquired through the same anatomic range for attenuation correction, and image registration with scan parameters optimized to minimize radiation exposure to the patient. PET scintigraphy and CT datasets were fused and displayed on a workstation with multiplanar and projection display capability. PET/CT Findings: There is visible although not hypermetabolic FDG accumulation in the new right apical pulmonary nodule seen on recent CT study. This nodule measures approximately [address] Maximum standard uptake value is 1.2. The two left upper lobe nodules are again seen. The smaller of these shows no discernible FDG accumulation. The larger and more inferior shows visible nonhypermetabolic uptake similar to the right upper lobe nodule. Maximum standard uptake value is 1.0. There is ground-glass opacity in the right lower lobe in the lateral lung base with mildly hypermetabolic FDG accumulation. Maximum standard uptake value here is 2.6. There are similar areas of ground-glass opacity and hypermetabolic FDG accumulation in the right posterior lung gutter with maximum standard uptake value 4.5 in two areas posteromedially. No hilar or mediastinal hypermetabolic uptake is seen. No adrenal uptake is observed. No abnormal abdominal or pelvic hypermetabolic uptake is seen. PET scintigraphy is otherwise unremarkable. Impression: There are three new areas of hypermetabolic uptake in the right lower lobe laterally and posteromedially corresponding with areas of ground-glass opacity, which were not apparent on January 13, 2018. The new nodule in the right apex shows visible but nonhypermetabolic uptake as does one of the two left upper lobe nodules. Metastatic disease cannot be excluded. Electronically Signed by Terry Kang MD 02/15/2018 08:25 P
== END ==
LOC: M PLARAD 14:03
PROVIDERS: ATTEND Nurse Practitioner Family
DX: C34.91 Malignant neoplasm of unspecified part of right bronchus or lung (principal); C34.92 Malignant neoplasm of unspecified part of left bronchus or lung
CPT/HCPCS: 78815; A9552

== ENCOUNTER → 2018-03-08 | Outpatient (CLI) | payer MEDICARE, MEDICAID ==
[~2018-03-08] MED LIST changes: +ALEV220T26 PO; +BIOF4GEL TOP; +FLUN25SP NARES; +LIDOCAINE 1% MDV 20ML VIAL As Ordered ONE; +OMEP20CA3 PO; +ONDA4TAB6 PO; +PEMBROLIZUMAB 200 MG INJ; +PRED10TA2 PO; +ROSU20TA4 PO
--- NOTE | 2018-03-08 10:51 | REP ---
CT CHEST WITHOUT CONTRAST: HISTORY: The patient was referred for possible CT guided needle biopsy of a ground-glass opacity with low level FDG avidity in the right lateral pleural angle on PET/CT study from February 14, 2018. Comparison is also made with chest CT study from January 17, 2017 and earlier PET/CT from June 29, 2017. PROCEDURE: The patient was interviewed and informed consent was obtained. In anticipation of performing a right lower lobe needle biopsy under CT guidance, the patient was placed on the CT table in the left side down lateral decubitus position. Preliminary scanning of the right lung base fail to demonstrate the ground-glass opacity target. There are is minimal fibrotic change in the right base adjacent to the slips of the right hemidiaphragm and posteromedially. There is some linear fibrosis but no ground-glass opacity target was identified. Accordingly, the procedure was aborted. The patient was placed supine and a repeat noncontrast CT acquisition was carried out. FINDINGS: As above, the ground-glass opacity seen on the CT images and the PET scintigraphy obtained February 14, 2018 is not apparent today. The lungs are hyperinflated. There is some fibrosis in both bases. CT study from January 13, 2018 showed a 9 mm spiculated new nodule in the right apex. This is again seen although it measures 6 mm in greatest diameter and may have decreased slightly in size. In any event, it has not enlarged in the interval since January 13, 2018. It is new compared with January 17, 2017 and June 29, 2017. It measured 6 mm on February 14, 2018 CT images as well. The CT study from January 13, 2018 also showed a 4 mm new nodule in the left upper lobe. This is again seen and is unchanged, Again measuring 4 mm. IMPRESSION: The intended ground-glass opacity target in the right lateral pleural angle is no longer apparent. The 6 mm nodule in the right upper lobe and the 4 mm nodule in the left upper lobe are again seen and are unchanged from the February 14, [address] images[address] Recommend follow[address] CT or PET/CT. Electronically Signed by Terry Kang MD 03/08/2018 05:42 P
== END ==
LOC: M RADPRO 08:16
PROVIDERS: ATTEND Nurse Practitioner Family
DX: R91.8 Other nonspecific abnormal finding of lung field (principal); C78.01 Secondary malignant neoplasm of right lung; C34.12 Malignant neoplasm of upper lobe, left bronchus or lung

== ENCOUNTER 2018-05-11 12:54 | Emergency (ER) | payer MEDICARE, MEDICAID ==
[~2018-05-11] VITALS: Ht 157.5 cm; Wt 50.0 kg
[~2018-05-11 12:54] MED LIST changes: -LIDOCAINE 1% MDV 20ML VIAL As Ordered ONE; -ONDA4TAB6 PO
[2018-05-11] MEDS ORDERED: NS 1,000 ML IV ONE ×2 (13:30→17:30)
[2018-05-11 13:51] LABS: BASO % 0.4 % (0.0-1.0); EOS # 0.1 10^3/uL (0.0-0.50); EOS % 1.2 % (0.0-3.0); HEMATOCRIT 48.4 % (36.0-47.0); HEMOGLOBIN 16.6 g/dl (12.0-15.5); LYMPH % 17.4 % (24.0-44.0); MEAN CORPUSCULAR HEMOGLOBIN 30.2 pg (27.0-33.0); MEAN CORPUSCULAR HGB CONC 34.3 g/dl (32.0-36.5); MONO # 0.6 10^3/uL (0.0-0.8); MONO % 10.9 % (0.0-5.0); NEUTROPHILS # 3.9 10^3/uL (1.8-7.7); NEUTROPHILS % 69.9 % (36.0-66.0); PLATELET COUNT, AUTOMATED 174 10^3/uL (150-450); WHITE BLOOD COUNT 5.6 10^3/uL (4.0-10.0)
[2018-05-11 14:20] LABS: ALBUMIN 4.1 GM/DL (3.2-5.2); ALT/SGPT 40 U/L (12-78); BILIRUBIN,DIRECT 0.2 MG/DL (0.0-0.2); BILIRUBIN,TOTAL 0.9 MG/DL (0.2-1.0); BLOOD UREA NITROGEN 20 MG/DL (7-18); CALCIUM LEVEL 8.3 MG/DL (8.5-10.1); CARBON DIOXIDE LEVEL 25 MEQ/L (21-32); CHLORIDE LEVEL 103 MEQ/L (98-107); CREATININE FOR GFR 0.75 MG/DL (0.55-1.30); GLOMERULAR FILTRATION RATE > 60.0 (>51); GLUCOSE, FASTING 72 MG/DL (70-100); LIPASE 123 U/L (73-393); POTASSIUM SERUM 3.4 MEQ/L (3.5-5.1); SODIUM LEVEL 139 MEQ/L (136-145); TOTAL PROTEIN 7.2 GM/DL (6.4-8.2)
[2018-05-11 14:31] LABS: INFLUENZA A AMPLIFICATION NEGATIVE (NEGATIVE); INFLUENZA B AMPLIFICATION NEGATIVE (NEGATIVE)
[2018-05-11] MEDS ORDERED: POTASSIUM CHLORIDE 10 MEQ SR TABLET PO ONE (17:30)
[2018-05-11] MEDS ORDERED: ONDA4TAB6 PO (22:06)
[2018-05-11 22:56] VITALS: BP 136/76
== END 2018-05-11 23:02 | disposition home or self-care (01) ==
LOC: EDBD 12:54 → M ED 12:54
DX: K52.9 Noninfective gastroenteritis and colitis, unspecified (principal); I10 Essential (primary) hypertension; J44.9 Chronic obstructive pulmonary disease, unspecified; Z88.8 Allergy status to other drugs, medicaments and biological substances; Z79.899 Other long term (current) drug therapy; Z79.51 Long term (current) use of inhaled steroids; Z79.82 Long term (current) use of aspirin

== ENCOUNTER → 2018-07-12 | Outpatient (CLI) | payer MEDICARE, MEDICAID ==
[~2018-07-12] MED LIST changes: -ALEN70TA57 PO; +ALEN70TA74 PO; -ASPI1TAB PO; +ASPI81TA26 PO; +ONDA4TAB6 PO; +[UNRECOGNIZED DRUG - CODE] PO; +[UNRECOGNIZED DRUG - CODE] PO
--- NOTE | 2018-07-12 15:46 | REP ---
PET/CT: History: Restaging non-small cell lung carcinoma. Monitoring tumor response to immuno therapy. Comparisons: February 14, 2018. The most remote PET-CT study is from September 08, 2016. TECHNIQUE: 54 minutes following the intravenous injection of a 9.64 mCi dose of F-18 FDG, three-dimensional PET scintigraphy is acquired from the skull base to the proximal thighs. Triplanar noncontrast CT scanning is acquired through the same anatomic range for attenuation correction, and image registration with scan parameters optimized to minimize radiation exposure to the patient. PET scintigraphy and CT datasets were fused and displayed on a workstation with multiplanar and projection display capability. PET/CT Findings: There is visible but non hypermetabolic uptake in one of the left upper lobe pulmonary nodules similar to the prior PET-CT. There is a new nodular density in the right lower lobe infrahilar region with hypermetabolic uptake. Maximum SUV is 4.74. There is a wedge-shaped parenchymal opacity peripheral to this in the right middle lobe consistent with atelectasis or infiltrate. This is also mildly hypermetabolic, SUV 3.17. There is a somewhat linear focus of increased uptake in the lingula with SUV 2.39. In the lateral aspect of the right lower lobe, there is a focus of slightly increased uptake, maximum SUV 2.16. The previously noted foci in the right lower lobe posteriorly have resolved. No other new hypermetabolic uptake is seen in the chest. Head and neck soft tissues are unremarkable. No abnormal hypermetabolic uptake is seen in the abdomen or pelvis. Impression: There are new foci of hypermetabolic uptake most notably in the right middle lobe and lingula. These are of uncertain significance. The corresponding opacities are new from January 13, 2018 and February 14, 2018 prior studies. Otherwise stable. Electronically Signed by Terry Kang MD 07/12/2018 04:33 P
== END ==
LOC: M PLARAD 09:31
PROVIDERS: ATTEND Internal Medicine Medical Oncology
DX: C34.12 Malignant neoplasm of upper lobe, left bronchus or lung (principal)
CPT/HCPCS: 78815; A9552

== ENCOUNTER → 2018-09-04 | Outpatient (CLI) | payer MEDICARE, MEDICAID ==
[~2018-09-04] MED LIST changes: +BIOF4GEL4 TOP; +ISOVUE-370 76% 100ML VIAL (Q9967) As Ordered ONE; +LEVO750T13 PO; -OMEP20CA3 PO; +OMEP20CA4 PO; +PROB250C PO; -ROSU20TA4 OR; -ROSU20TA4 PO; +ROSU20TA5 OR; +ROSU20TA5 PO; +[UNRECOGNIZED DRUG - OTHER] PO
--- NOTE | 2018-09-05 07:07 | REP ---
CT CHEST WITH IV CONTRAST: TECHNIQUE: Axial contrast enhanced images from the thoracic inlet to the upper abdomen using 100 mL Isovue 370 intravenous contrast material with multiplanar reformations. COMPARISON: PET CT 07/12/[address] chest 01/13/2018. Previously noted right apical nodule on the CT of 01/13/2018 has decreased in size now measuring about 4 x 3 mm, previously 9 mm. An insignificant 3 mm nodule is seen in the posterior right upper lobe, unchanged. Areas of hypermetabolic uptake in the right middle lobe have mildly increased in size and become somewhat more confluent with more air bronchograms present. This may represent consolidative pneumonic infiltrate. However, continued followup is recommended. The hypermetabolic focus in the lingula has resolved. In the left upper lobe, there is a 5-6 mm nodular opacity which has slightly increased in size since the 01/13/2018 exam by about 2 mm. This was not hypermetabolic on the PET CT. There are scattered nonsuspicious fibroatelectatic changes inferiorly bilaterally. There is no new adenopathy. The heart is normal in size. There is no pleural or pericardial effusion. The visualized upper abdominal structures are unremarkable. IMPRESSION: Right middle lobe opacities have become more confluent and have increased since PET CT of 07/12/2018. There are more air bronchograms present. This may represent pneumonic consolidative infiltrate. Continued close term followup recommended. The lingular focus has resolved. In the right upper lobe, there is a 4 mm nodule which has decreased in size since 01/13/2018 and there is a stable 3 mm nodule. In the left upper lobe, there is a 5-6 mm nodular opacity which has slightly increased in size since 01/13/2018 when it was 4 mm. This did not show hypermetabolic activity. Electronically Signed by Rajiv Fulton MD 09/06/2018 09:39 A
== END ==
LOC: M RAD 14:15
PROVIDERS: ATTEND Nurse Practitioner Family
DX: C34.90 Malignant neoplasm of unspecified part of unspecified bronchus or lung (principal)
CPT/HCPCS: 71260; Q9967

== ENCOUNTER → 2018-10-13 | Outpatient (CLI) | payer MEDICARE, MEDICAID ==
--- NOTE | 2018-10-13 15:55 | REP ---
HISTORY: History of lung cancer. COMPARISON: All priors reviewed, the latest 09/04/2018. CONTRAST: 100 mL Isovue-370. The mediastinum and pulmonary bassem are unchanged showing no evidence of a mass or adenopathy. No pleural or pericardial effusions have developed. There is no change in the imaged upper abdomen. There is no change in the imaged osseous structures. There is a sclerotic density involving T10 vertebral body, status quo. Evaluation of the lung woodruff again show emphysematous changes with lung field hyperexpansion, status quo. The opacity seen in the right middle lobe with air bronchograms on the prior exam has gotten smaller. The spiculated nodule seen in the left upper lobe measuring 6 mm is unchanged. There are no new abnormal nodules, masses or opacities. There is cylindrical bronchiectasis, status quo. IMPRESSION: 1. There has been some lung field improvement as described above. 2. Other chronic changes, but significant findings as described above. Electronically Signed by Jaleel Sierra DO 10/13/2018 04:05 P
== END ==
LOC: M RAD 13:00
PROVIDERS: ATTEND Internal Medicine Medical Oncology
DX: C34.12 Malignant neoplasm of upper lobe, left bronchus or lung (principal)
CPT/HCPCS: 71260; Q9967

== ENCOUNTER → 2019-01-08 | Outpatient (CLI) | payer MEDICARE, MEDICAID ==
--- NOTE | 2019-01-08 17:13 | REP ---
CT chest with IV contrast: History: Restaging non-small cell lung carcinoma. Comparison chest CT studies are reviewed, the most recent of which is from October 13, 2018. September 04, [address] is also reviewed. CT findings: There are emphysematous changes in the upper lobes bilaterally. The lungs are hyperinflated overall as before. There is some chronic atelectasis and fibrosis in the right middle lobe distribution. This is actually is a little less confluent and better aerated than on the October 13, 2018 study but persistent in general. There is no evidence of central hilar or endobronchial lesion. There are stable noncalcified pulmonary nodules the largest of which is a spiculated nodule in the left upper lobe measuring [address] study. This measured 6 mm August 2018 and 4 mm in February 2018. The right apical nodule is smaller than it was in February of 2018. There is a stable 3.4 mm nodule in the right upper lobe posteriorly. No new pulmonary nodule is appreciated. No pleural or pericardial effusion is seen. No hilar or mediastinal mass or adenopathy is observed. There is some left coronary artery vascular calcification. No adrenal lesion is observed. The visualized upper abdominal structures are otherwise unremarkable. Impression: 7 mm spiculated nodule in the left upper lobe appears to be gradually enlarging. COPD. Chronic fibro atelectatic changes right middle lobe distribution. Stable subcentimeter nodules otherwise unchanged. Electronically Signed by Terry Kang MD 01/08/2019 05:14 P
== END ==
LOC: M RAD 12:48
PROVIDERS: ATTEND Nurse Practitioner Family
DX: C34.92 Malignant neoplasm of unspecified part of left bronchus or lung (principal)
CPT/HCPCS: 71260; Q9967

== ENCOUNTER → 2019-01-24 | Outpatient (CLI) | payer MEDICARE, MEDICAID ==
[~2019-01-24] MED LIST changes: -ISOVUE-370 76% 100ML VIAL (Q9967) As Ordered ONE
--- NOTE | 2019-01-26 14:15 | REP ---
PET/CT: HISTORY: Restaging bilateral lung carcinoma. Non-small cell lung carcinoma. COMPARISONS: Most recent comparison PET-CT study is July 12, 2018. February 14, 2018 study is also reviewed. Most recent comparison CT study of the chest is from January 08, 2019. TECHNIQUE: 1 hour 27 minutes following the intravenous injection of a 8.13 mCi dose of F-18 FDG, three-dimensional PET scintigraphy is acquired from the skull base to the proximal thighs. Triplanar noncontrast CT scanning is acquired through the same anatomic range for attenuation correction, and image registration with scan parameters optimized to minimize radiation exposure to the patient. PET scintigraphy and CT datasets were fused and displayed on a workstation with multiplanar and projection display capability. PET/CT FINDINGS: Head and neck soft tissues are unremarkable. The left upper lobe 7 mm nodule identified on January 08, [address] shows hypermetabolic uptake, maximum standard uptake value 3.20. There is no other abnormal hypermetabolic uptake in the chest. There is right middle lobe platelike atelectatic change. The previously noted infrahilar area of uptake on the right is resolved. No abnormal hypermetabolic uptake is seen in the adrenal glands. Normal hepatic, splenic, gastrointestinal, and genitourinary FDG accumulation is seen. There is no suspicious hypermetabolic uptake in the abdomen or pelvis. Scattered areas of normal variant skeletal muscle uptake are seen. IMPRESSION: The 7 mm left upper lobe nodule is hypermetabolic today. This represents a change from the most recent prior PET-CT study. The right lung findings noted previously have improved. There is some platelike atelectasis in the right middle lobe. Electronically Signed by Terry Kang MD 01/27/2019 09:50 A
== END ==
LOC: M PLARAD 11:25
PROVIDERS: ATTEND Nurse Practitioner Family
DX: C34.11 Malignant neoplasm of upper lobe, right bronchus or lung (principal); C34.12 Malignant neoplasm of upper lobe, left bronchus or lung
CPT/HCPCS: 78815; A9552

== ENCOUNTER → 2019-03-06 | Outpatient (CLI) | payer MEDICARE, MEDICAID ==
[~2019-03-06] MED LIST changes: +D3 22000 PO; +OMEP-172 PO; -OMEP20CA4 PO; +PROHANCE 279.3MG/ML 15ML VIAL (A9576) As Ordered ONE
--- NOTE | 2019-03-06 09:40 | REP ---
INDICATION: Lung CA, question metastases. PROCEDURE: MRI brain with and without contrast COMPARISON STUDIES: No prior similar studies FINDINGS: No acute bleed or acute large vessel territorial infarct. Ventricles, cisterns and sulci within normal limits. No mass effect or midline shift. No abnormal fluid collections. There is no evidence of metastatic disease to brain or calvarium. No mass lesion or abnormal enhancement. The paranasal sinuses are clear, moderate sized miryam bullosa seen on the right. CONCLUSION: Unremarkable examination. No evidence of metastatic disease to brain or calvarium. Electronically Signed by Tom Low MD 03/06/2019 09:32 A
== END ==
LOC: M RAD 07:07
PROVIDERS: ATTEND Internal Medicine Medical Oncology
DX: C34.90 Malignant neoplasm of unspecified part of unspecified bronchus or lung (principal)
CPT/HCPCS: 70553; A9576

== ENCOUNTER → 2019-03-08 | Outpatient (CLI) | payer MEDICARE, MEDICAID ==
[~2019-03-08] MED LIST changes: -PROHANCE 279.3MG/ML 15ML VIAL (A9576) As Ordered ONE
--- NOTE | 2019-03-08 17:26 | REP ---
WHOLE BODY BONE SCAN: COMPARISON: 09/20/2016. Following the intravenous administration of 22 millicuries of technetium 99M MDP, patient's whole body was imaged in the anterior and posterior projections. Additional oblique and lateral views are obtained. There is mild scattered uptake throughout the spine comparing with prior CT exams of chest, abdomen and pelvis these correlate with areas of degenerative disc change. No other abnormal uptake is seen in the axillary appendicular skeletal. There is no compelling scintigraphic evidence of osseous metastasis. Renal and bladder activity are seen. IMPRESSION: Scattered arthritic uptake in the spine as seen on prior studies 09/20/2016. No compelling scintigraphic evidence of osseous metastasis. Electronically Signed by Rajiv Fulton MD 03/08/2019 05:45 P
== END ==
LOC: M RAD 10:40
PROVIDERS: ATTEND Nurse Practitioner Family
DX: R07.81 Pleurodynia (principal); M25.512 Pain in left shoulder
CPT/HCPCS: 78306; A9503

== ENCOUNTER → 2019-04-12 | Outpatient (REF) | payer MEDICARE, MEDICAID ==
[~2019-04-12] MED LIST changes: -OMEP-172 PO; +OMEP1CAP73 PO
[2019-04-12 12:02] LABS: BASO % 0.5 % (0.0-1.0); EOS # 0.1 10^3/uL (0.0-0.5); EOS % 0.8 % (0.0-3.0); HEMOGLOBIN 16.1 g/dl (12.0-15.5); LYMPH # 1.7 10^3/uL (1.5-5.0); MEAN CORPUSCULAR HEMOGLOBIN 30.7 pg (27.0-33.0); MEAN CORPUSCULAR HGB CONC 32.9 g/dl (32.0-36.5); MEAN CORPUSCULAR VOLUME 93.5 fl (80.0-96.0); MONO # 0.7 10^3/uL (0.0-0.8); MONO % 8.9 % (0.0-5.0); NEUTROPHILS # 5.3 10^3/uL (1.5-8.5); NEUTROPHILS % 67.5 % (36.0-66.0); PLATELET COUNT, AUTOMATED 279 10^3/uL (150-450); RED BLOOD COUNT 5.24 10^6/uL (4.00-5.40); WHITE BLOOD COUNT 7.9 10^3/uL (4.0-10.0)
[2019-04-12 12:06] LABS: APPEARANCE, URINE CLEAR (CLEAR); BACTERIA, URINE AUTO NEGATIVE (NEGATIVE); BILIRUBIN, URINE AUTO NEGATIVE (NEGATIVE); BLOOD, URINE BLOOD 1+ (NEGATIVE); COLOR, URINE STRAW (YELLOW); GLUCOSE, URINE (UA) AUTO NEGATIVE (NEGATIVE); KETONE, URINE AUTO NEGATIVE (NEGATIVE); LEUKOCYTE ESTERASE, URINE AUTO NEGATIVE (NEGATIVE); NITRITE, URINE AUTO NEGATIVE (NEGATIVE); PROTEIN, URINE AUTO NEGATIVE (NEGATIVE); RBC, URINE AUTO 3 /HPF (0-3); SPECIFIC GRAVITY URINE AUTO 1.004 (1.002-1.035); SQUAMOUS EPITHELIAL CELL UR AU 0 /HPF (0-6); UROBILINOGEN, URINE AUTO 0.2 mg/dL (0.0-2.0); WBC, URINE AUTO 0 /HPF (0-3)
[2019-04-12 12:32] LABS: ALBUMIN 4.7 GM/DL (3.2-5.2); ALT/SGPT 31 U/L (12-78); BILIRUBIN,TOTAL 0.4 MG/DL (0.2-1.0); BLOOD UREA NITROGEN 13 MG/DL (7-18); CALCIUM LEVEL 9.6 MG/DL (8.5-10.1); CARBON DIOXIDE LEVEL 30 MEQ/L (21-32); CHLORIDE LEVEL 105 MEQ/L (98-107); CREATININE FOR GFR 0.77 MG/DL (0.55-1.30); GLOMERULAR FILTRATION RATE > 60.0 (>51); GLUCOSE, FASTING 101 MG/DL (70-100); POTASSIUM SERUM 4.7 MEQ/L (3.5-5.1); SODIUM LEVEL 142 MEQ/L (136-145); TOTAL PROTEIN 8.2 GM/DL (6.4-8.2)
[2019-04-12 12:39] LABS: CREATININE, URINE 26.4 MG/DL; MALB URINE SIEMENS 19.9 MG/L; MAU/CREAT RATIO 75.3 MCG/MG (0.0-30.0)
== END ==
LOC: M SFHCPLAZ 10:34
PROVIDERS: ATTEND Family Medicine
DX: N17.9 Acute kidney failure, unspecified (principal)
CPT/HCPCS: 36415; 80053; 81001; 82043; 83605; 85025; G0463

== ENCOUNTER → 2019-04-25 | Outpatient (CLI) | payer MEDICARE, MEDICAID ==
[~2019-04-25] MED LIST changes: +ISOVUE-370 76% 100ML VIAL (Q9967) As Ordered ONE
--- NOTE | 2019-04-25 11:03 | REP ---
Of the chest with IV contrast for restaging of non-small cell lung carcinoma: Comparison is the most recent prior study dated 01/08/2019. There is a 7 mm lung nodule with poorly defined margins in the left upper lobe on image 31, unchanged. There is a 3 mm nodule posteriorly in the right upper lobe on image 28, unchanged. There is a 5 ml lung nodule in the apex of the right upper lobe on image 18, unchanged. There is discoid atelectasis versus parenchymal scar in the right middle lobe, unchanged. There are foci of atelectasis in the costophrenic angles bilaterally, unchanged. There are scattered bulla throughout the lung woodruff bilaterally. There are no infiltrates or pleural effusions. There is no mediastinal, hilar or axillary lymph node enlargement. Thoracic aorta is unremarkable. Cardiac size is normal. There is no pericardial effusion. Upper abdomen: There is no adrenal mass. The visualized upper abdominal contents are otherwise unremarkable. Impression: The left upper lobe lung nodule is unchanged. The two right upper lobe lung nodules are unchanged. There are areas of parenchymal scarring/atelectasis, unchanged. No adenopathy, infiltrate or effusion. No change from the prior study. Electronically Signed by Rajiv Rae MD 04/25/2019 10:54 A
== END ==
LOC: M RAD 08:32
PROVIDERS: ATTEND Internal Medicine Medical Oncology
DX: R91.1 Solitary pulmonary nodule (principal)
CPT/HCPCS: 71260; Q9967

== ENCOUNTER → 2019-08-22 | Outpatient (CLI) | payer MEDICARE, MEDICAID ==
[~2019-08-22] MED LIST changes: +GASTROGRAFIN SOLUTION 30ML (Q9963) As Ordered ONE; -ISOVUE-370 76% 100ML VIAL (Q9967) As Ordered ONE; +ISOVUE-370 76% 100ML VIAL As Ordered ONE
--- NOTE | 2019-08-22 15:43 | REP ---
CT CHEST WITH IV CONTRAST: HISTORY: Restaging small cell lung carcinoma. Comparison chest CT study January 08, 2019. Comparison PET-CT study January 24, 2019. There is a comparison chest CT study from April 25, [address] CONTRAST DOSE: 100 mL of intravenous Isovue [address] FINDINGS: The previously noted spiculated left upper lobe nodule appears a little larger, currently measuring 11 x 9 x 12 mm. This was previously measured at 7 mm. The two tiny previously identified right upper lobe nodules are again seen unchanged. Emphysematous changes are noted. No new pulmonary nodule or mass lesion is seen. There is some linear fibrosis in the right middle lobe distribution again noted unchanged. The lungs overall are hyperinflated as before. No pleural or pericardial effusion is seen. No hilar or mediastinal mass or adenopathy has developed. There is some left coronary artery vascular calcification. No other vascular abnormality is observed. The visualized upper abdominal structures are unremarkable. IMPRESSION: The spiculated nodule in the left upper lobe is slightly larger today. Electronically Signed by Terry Kang MD 08/22/2019 04:07 P
--- NOTE | 2019-08-22 16:05 | REP ---
CT ABDOMEN AND PELVIS WITH IV AND ORAL CONTRAST: HISTORY: Restaging small cell lung carcinoma. Comparison head CT study January 24, 2019. CT CONTRAST DOSE: 100 mL of intravenous Isovue 370. CT FINDINGS: Preliminary digital preschool paraprofessional radiograph is unremarkable. The liver and spleen are normal in size homogeneous in texture. No abnormality is noted in the gallbladder. No pancreatic abnormality is appreciated. Normal adrenal glands are seen bilaterally. The kidneys enhance symmetrically and are morphologically intact. No retroperitoneal mass or adenopathy is seen. Small and large bowel loops are unremarkable in the abdomen and pelvis. Uterus is surgically absent. Urinary bladder is unremarkable. No abdominal wall defect or bony destructive lesion is appreciated. IMPRESSION: No evidence of abdominal metastatic disease. Electronically Signed by Terry Kang MD 08/22/2019 04:46 P
== END ==
LOC: M RAD 11:00
PROVIDERS: ATTEND Internal Medicine Medical Oncology
DX: C34.12 Malignant neoplasm of upper lobe, left bronchus or lung (principal)
CPT/HCPCS: 71260; 74177; Q9963; Q9967

== ENCOUNTER → 2019-09-11 | Outpatient (CLI) | payer MEDICARE, MEDICAID ==
[~2019-09-11] MED LIST changes: -GASTROGRAFIN SOLUTION 30ML (Q9963) As Ordered ONE; -ISOVUE-370 76% 100ML VIAL As Ordered ONE
--- NOTE | 2019-09-12 08:48 | REP ---
REASON: Followup bilateral lung carcinoma. The latest prior PET/CT 01/26/2019 showed hypermetabolic activity in the 7 mm sized nodule in the left lung upper lobe. Prior PET scans were all reviewed. Prior CT chest, abdomen and pelvis 08/22/2019 was reviewed. That examination showed a spiculated nodule in the left upper lobe slightly increased in size compared to the prior CT of the chest of 04/25/2019. That examination was also reviewed. After the intravenous administration of 9.4 millicuries of FDG-18, triplane whole body PET/CT was performed from the skull base to the mid thigh. The peripheral spiculated nodule seen in the left upper lobe on the CT scan of the chest of 08/22/2019 is again seen today on today's CT component of the PET/CT and is unchanged in size, however, the lesion is hypermetabolic with maximal SUV valve of 3.2. No other areas of abnormal hypermetabolic activity are seen in the neck, chest, abdomen, or pelvis. IMPRESSION: Hypermetabolic left upper lobe nodule as described above. Electronically Signed by Jaleel Sierra DO 09/12/2019 12:53 P
== END ==
LOC: M PLARAD 14:19
PROVIDERS: ATTEND Internal Medicine Medical Oncology
DX: C34.12 Malignant neoplasm of upper lobe, left bronchus or lung (principal)
CPT/HCPCS: 78815; A9552

== ENCOUNTER → 2019-12-26 | Outpatient (CLI) | payer MEDICARE, MEDICAID ==
[~2019-12-26] MED LIST changes: +ISOVUE-370 76% 100ML VIAL As Ordered ONE
--- NOTE | 2019-12-26 14:39 | REP ---
INDICATION: LUNG CA, RESTAGING. COMPARISON: Comparison is made with PET scan imaging from September 11, [address] study from August 22, 2019 as well as April 25, 2019.. TECHNIQUE: Helical scanning is acquired and 3 mm axial images re-formatted. Coronal and sagittal MPR images and coronal MIP images are generated and reviewed. CT contrast dose is 75 mL of intravenous Isovue 370. FINDINGS: The 2 previously identified small right upper lobe nodules have not changed in size or appearance from the August 22, 2019 prior study. The previously noted spiculated nodule in the left upper lobe however has yet again increased somewhat in size. Currently, to my measurement, it is 13 mm right to left by 11 mm anterior to posterior by 7 mm cranial to caudal. In July of 2019, it measured 11 mm. This was felt to be hypermetabolic on PET-CT. The previously noted band of fibro atelectatic changes seen in the right middle lobe is again noted unchanged. Lungs are hyperinflated and there are mild emphysematous changes. No hilar or mediastinal mass or adenopathy is observed. No pleural or pericardial effusion is seen. Normal adrenal glands are seen. The visualized upper abdominal structures are unremarkable. IMPRESSION: Gradually enlarging spiculated nodule left upper lobe considered suspicious. No new nodule. Evidence of COPD. Two stable nodules in the right upper lobe. Linear fibrosis in the right middle lobe. <Electronically signed by Candido Kang > 12/26/19 [id number]
== END ==
LOC: M RAD 12:42
PROVIDERS: ATTEND Internal Medicine Medical Oncology
DX: C34.90 Malignant neoplasm of unspecified part of unspecified bronchus or lung (principal)
CPT/HCPCS: 71260; Q9967

== ENCOUNTER → 2020-01-23 | Outpatient (CLI) | payer MEDICARE, MEDICAID ==
[~2020-01-23] MED LIST changes: +D31000TA2 PO; -ISOVUE-370 76% 100ML VIAL As Ordered ONE
--- NOTE | 2020-01-23 16:12 | REP ---
INDICATION: SOLITARY PULMONARY NODULE. COMPARISON: 12/26/2019 as well as other prior exams. TECHNIQUE: CT chest performed without the use of intravenous contrast. Sagittal and coronal reconstruction images are performed. FINDINGS: Lungs: There is a stable subcentimeter nodule in the right upper lobe on image 15 another posterolaterally on image 24. Stable fibrotic changes are seen in the right middle lobe. The left upper lobe peripherally a spiculated nodule is again seen near the pleural surface measuring 10 x 12 x 15 mm, measuring slightly greater than on the prior study when it measured 7 x 11 x 13 mm. Small portion of the nodule laterally could contacts the pleural surface. No new parenchymal findings are seen bilaterally. Mediastinum: No gross adenopathy. Archana: No gross adenopathy. Axilla: No gross adenopathy. Pleura: No effusion. Heart: Not enlarged. Thoracic aorta: No aneurysm. Upper abdominal structures: Grossly unremarkable. Visualized osseous structures: There are degenerative changes of the spine without compression fracture. IMPRESSION: Left upper lobe spiculated nodule again visualized. It measures slightly greater than on the prior study of 12/26/2019 as discussed in detail above. Other chronic changes are stable. <Electronically signed by Rajiv Fulton > 01/23/20 [id number]
== END ==
LOC: M RAD 15:35
PROVIDERS: ATTEND Internal Medicine Pulmonary Disease
DX: R91.1 Solitary pulmonary nodule (principal)

== ENCOUNTER → 2020-03-05 | Outpatient (CLI) | payer MEDICARE, MEDICAID ==
--- NOTE | 2020-03-05 13:04 | RADONC.CN ---
Radiation Oncology Hx/Consult Radiation Oncology Consult Date of Service: Mar 05, 2020 Pt Identifier Claudia Robles is a 60 year old female current smoker with NSCLC diagnosed in 2017 with bilateral lung nodules unclear if synchronous primaries or M1a. She has had a durable response to keytruda monotherapy (now s/p cycle 54) and is seen for consideration of SBRT for a metachronous ROSANNA nodule which has grown on serial CT scans and is concerning for a new primary cancer. Diagnosis/Treatment History Oncologic History Presented in 2017 with BL lung nodules a single RUL nodule, and 2 left upper lobe lung nodules (evidence on PET from 09/08/16). Biopsy showing adenocarcinoma. She was started on keytruda 08/2016. She experienced metabolic CR. On 01/24/19 she had a PET-CT which showed a new hypermetabolic ROSANNA nodule measuring 7 mm. This has steadily grown on serial CTs, now measuring 1.2 cm on scan fropm 01/23/20. PFTs 2017 FEV1 0.9L DLCO 33% predicted Interval History Reports stable LANIER. She is on several inhaled medications. Has a productive cough. Appetite and weight stable. Has some stressors at home right now. Still smoking, no desire to quit at this time. Past Medical History: COPD Cervical spondylosis HPL HTN Osteoporosis Past Surgical History: Appendectomy Hysterectomy Laminectomy Family History: Non contributory Social History: 40 Pack year current smoker Non-drinker Allergies / Meds Allergies: Coded Allergies: pregabalin (Verified Allergy, Unknown, 06/01/18) varenicline (Verified Allergy, Unknown, 06/01/18) Home Meds Active Scripts Levothyroxine Sodium (LEVOTHYROXINE SODIUM) 50 Mcg Tab, 50 MCG PO DAILY for 30 Days, #30 TAB 2 Refills Prov:Vida Teresa MD 07/04/19 Ipratropium/Albuterol Sulfate (Combivent Respimat 20-100 Mcg) 4 Gm Mist.inhal, 1 PUFF INH QID, #1 INHALER Prov:Malaika Ritchie 12/01/18 Saccharomyces Boulardii (Probiotic) 250 Mg Capsule, 1 CAP PO DAILY for 14 Days, #14 CAP 11 Refills one cap daily while on levofloxacin Prov:Vida Teresa MD 09/08/18 Ondansetron (Ondansetron Odt) 4 Mg Tab, 4 MG PO Q6P PRN for NAUSEA for 7 Days, #10 TAB Prov:JULIUS CURRAN INSPECTOR [employer] CARRIER 05/11/18 Reported Medications Cholecalciferol (Vitamin D3) (Vitamin D3) 1,000 Unit Tablet, 2000 UNITS PO DAILY, TAB 01/23/20 Naproxen Sodium (Naproxen Sodium) 220 Mg Capsule, 220 MG PO PRN for 30 Days, CAP 08/17/18 Menthol (Biofreeze) 118 Ml Gel..ml., 1 APLCT TOP PRN for 7 Days, #118 ML 08/17/18 [Pembrolizumab 200MG] No Conflict Check, 1 DOSE INJ ASDIRECTED EVERY 3 WEEKS. DUE 03/10/18. 03/08/18 Flunisolide (Flunisolide) 200 Sprays/25 Ml Naspr, 2 SPRAYS NARES BID PRN for CONGESTION 03/08/18 Omeprazole (Omeprazole) 20 Mg Cap, 20 MG PO BID 03/08/18 Rosuvastatin Calcium (Rosuvastatin Calcium) 20 Mg Tab, 20 MG PO QHS 03/08/18 Aspirin (Aspirin EC) 81 Mg Tab, 81 MG PO QHS 12/16/17 Umeclidinium [place] (Incruse Ellipta) 62.5 Mcg/Inh Inh, 62.5 MCG INH QHS 12/16/17 Diltiazem HCl (Diltiazem HCl) 60 Mg Tab, 60 MG PO QHS 05/26/15 Alendronate Sodium (Alendronate Sodium) 70 Mg Tab, 70 MG PO QWEEK TAKES ON FRIDAYS. 05/26/15 Fluticasone Propion/Salmeterol (Advair Hfa 230-21 Mcg Inhaler) 1 Aer Aer, 1 PUFF INH DAILY, INHALER 05/26/15 Review of Systems Constitutional: Denies: Chills, Fever, Night Sweats Eyes: Denies: Pain, Vision change HEENT: Denies: Head Aches, Dysphagia, Sore Throat Skin: Denies: Rash, Lesions, Bruising Pulmonary: Reports: Dyspnea, Cough; Denies: Pleuritic Chest Pain Cardiovascular: Denies: Chest Pain, Palpitations, Edema Gastrointestinal: Denies: Nausea, Vomiting, Abdominal Pain, Diarrhea Genitourinary: Denies: Dysuria, Frequency, Incontinence Hematologic: Denies: Bruising, Petecchia, Enlarged Lymph Nodes Musculoskeletal: Denies: Neck pain, Back pain Neurological: Denies: Weakness, Numbness, Incoordination Psych: Reports: Mood Normal; Denies: Memory Issues, Thoughts of Self Harm Vital Signs Ht 62" Wt 109 lb T 98.4 P 88 RR 22 BP 167/85 Pain 0 Fatigue 10 (emotional) General Exam: Positive: Alert, Cooperative, Mild Distress Eye Exam: Positive: PERRLA, EOMI ENT EXAM: Positive: Mucous membr. moist/pink, Pharynx Normal Neck Exam: Negative: Thyromegaly, Lymphadenopathy Chest Exam: Positive: Normal air movement, Wheezing; Negative: Rales, Rhonchi Heart Exam: Positive: Rate Normal, Regular Rhythm Abdomen Exam: Positive: Soft; Negative: Tenderness, Mass Extremity Exam: Negative: Edema, Tenderness Skin Exam: Positive: Nl turgor and temperature; Negative: Rash Neuro Exam: Positive: Normal Gait, Normal Speech, Cranial Nerves 3-12 NL Psych Exam: Positive: Mental status NL, Mood NL, Memory Intact Diagnostic and Laboratory Diagnostic Review Radiologic images, relevant labs and pathology reports were personally reviewed and discussed with Ms. Robles. Assessment and Plan Impression Ms. Robles is a 60 year old female current smoker with NSCLC diagnosed in 2017 with bilateral lung nodules unclear if synchronous primaries or M1a. She has had a durable response to keytruda monotherapy (now s/p cycle 54) and is seen for consideration of SBRT for a metachronous ROSANNA nodule which has grown on serial CT scans and is concerning for a new primary cancer. Stage [id number] ROSANNA NSCLC (presumed) stage IA2 Performance Status ECOG 0 Plan We had an extensive discussion with Ms. Robles regarding the diagnosis at hand and available therapeutic options. She has had a long and sustained response to keytruda with all of her initial lung confined disease burden in check now > 3 years from diagnosis. She does however have a ROSANNA metachronous lesion present from 2019, which is growing, PET avid and spiculated. We discussed that biopsy is an option to confirm the phenotype of this cancer (it may be distinctly different from the original disease) is an option as the lesion is peripheral and accessible. She however does not want to undergo biopsy, which I think is reasonable and from an SBRT standpoint would not change my management. I recommend SBRT 60 Gy in 5 fractions with a 4D/ITV based planning approach and DCA treatment delivery. We discussed the logistics of receiving radiation therapy in detail including the need for a 1-time planning session. We reviewed the possible side effects, fatigue, pneumonitis and chest wall toxicity. After discussing the risks, benefits and alternatives to radiation therapy, Ms. Robles was amenable to pursuing radiotherapy. All questions were answered to the patient's satisfaction. We instructed the patient that if there were any questions,concerns or changes in clinical status in the interim to contact us. Recommendations SBRT to the ROSANNA lesion 60 Gy in 5 fractions Simulation in the next week JOLLY DILL MD Mar 05, 2020 13:03
== END ==
LOC: M ONCR 10:59
PROVIDERS: ATTEND General Practice
DX: C34.12 Malignant neoplasm of upper lobe, left bronchus or lung (principal); F17.218 Nicotine dependence, cigarettes, with other nicotine-induced disorders; Z92.3 Personal history of irradiation

== ENCOUNTER 2020-03-28 07:58 | Outpatient (RCR) | payer MEDICARE, MEDICAID ==
[~2020-03-28 07:58] MED LIST changes: -ALEN70TA74 PO; +ALEN70TA82 PO
== END 2020-03-30 ==
LOC: M ONCR 07:58
PROVIDERS: ATTEND General Practice
DX: C34.12 Malignant neoplasm of upper lobe, left bronchus or lung (principal)

== ENCOUNTER → 2020-06-16 | Outpatient (CLI) | payer MEDICARE, MEDICAID ==
[~2020-06-16] MED LIST changes: +NAPR5CAP PO; -[UNRECOGNIZED DRUG - OTHER] PO
--- NOTE | 2020-07-01 02:14 | ECWPNPC ---
PATIENT NAME: KRISTIE REED : 1960 GENDER: FEMALE VISIT DATE: 06/16/2020 DISCHARGE DATE: 06/16/20 1413 VISIT LOCKED DATE TIME: PHYSICIAN: PAULIE HATHAWAY PHYSICIAN PAGER NO: ACTIVE RESOURCE: PAULIE HATHAWAY REASON FOR APPOINTMENT 1. NECK PAIN HISTORY OF PRESENT ILLNESS GENERAL: PLEASANT 60-YEAR-OLD FEMALE WITH A HISTORY OF NON-SMALL CELL LUNG CANCER STAGE IV IS HERE TODAY PER REFERRAL OF [facility] FOR PERSISTENT NECK PAIN. CURRENTLY UNDER CHEMOTHERAPY EVERY 3 WEEKS AT [facility]. FINISHED RADIATION THERAPY IN FEBRUARY 2020. DESCRIBES PAIN CONSTANT BURNING AND ACHING. PAIN IS AGGRAVATED BY EXTENSION OF SPINE AND WITH TURNING HEAD TOWARDS THE LEFT. REPORTING DIFFICULTY GETTING TO SLEEP AT NIGHT DUE TO PAIN. REVIEWED TREATMENT OPTIONS. - - -. FALL RISK SCREENING: SCREENING : NO FALLS REPORTED IN THE LAST YEAR , : NO FALLS REPORTED IN THE LAST YEAR. PAIN SCREENING: PATIENT HAS A COMPLAINT OF ACUTE OR CHRONIC PAIN :YES LOCATION OF PAIN:NECK INTENSITY OF PAIN (SCALE OF 1 TO 10):10 WHAT DOES YOUR PAIN FEEL LIKE:ACHING, BURNING, SHARP, STABBING, THROBBING, SHOOTING DURATION:CONTINOUS, CONSTANT PAIN IS INCREASED BY:ACTIVITIES PAIN IS DECREASED BY: BIOFREEZE NURSING NOTE: - - -. PAIN CENTER INTAKE QUESTIONS: DO YOU HAVE A HISTORY OF MRSA? :NO DO YOU TAKE A BLOOD THINNERS? :NO DO YOU HAVE ANY BLEEDING DISORDERS? :NO ANY NEW NUMBNESS OR WEAKNESS IN YOUR LEGS OR ARMS? :YES LEGS, HANDS ANY PACEMAKER,DEFIBRILLATOR, OR DORSAL COLUMN STIMULATOR? :NO DO YOU HAVE ANY RASHES OR OPEN SORES? :NO ARE YOU ALLERGIC TO IV DYE? :NO ARE YOU DIABETIC? :NO ANY NEW PROBLEMS WITH YOUR MEDICATIONS? :NO HAVE YOU RECEIVED A VACCINE IN THE PAST 30 DAYS? :YES IF SO WHAT VACCINE AND WHEN? #2 COVID VACCINE 06/02/20 DO YOU PLAN TO RECEIVE A VACCINE IN THE NEXT 21 DAYS? :NO DO YOU NEED ANY PRESCRIPTION? :NO DO YOU TAKE ANY IMMUNOSUPPRESSIVE MEDICATIONS? :YES KEYTRUDA Q 3 WEEKS FOR LUNG CANCER CURRENT MEDICATIONS TAKING VITAMIN D 2000 UNIT TABLET 1 TABLET ORALLY DAILY TAKING ASPIRIN 81 MG TABLET 1 TAB(S) ORALLY DAILY TAKING FOSAMAX 70 70MG TABLET 1 TAB(S) ORAL WEEKLY TAKING CLOTRIMAZOLE 10 MG TELLO 1 TELLO MOUTH/THROAT QID TAKING BIOFREEZE ROLL-ON 4 % GEL 1 APPLICATION TO AFFECTED AREA NEEDED EXTERNALLY ONCE A DAY TAKING LEVOTHYROXINE SODIUM 50 MCG TABLET 1 TABLET ON AN EMPTY STOMACH IN THE MORNING ORALLY ONCE A DAY TAKING CLARITIN 10 MG TABLET 1 TABLET ORALLY ONCE A DAY TAKING COMBIVENT RESPIMAT 20-100 MCG/ACT AEROSOL SOLUTION 1 PUFF INHALATION FOUR TIMES A DAY TAKING INCRUSE ELLIPTA 62.5 MCG/INH AEROSOL POWDER BREATH ACTIVATED 1 PUFF INHALATION ONCE A DAY TAKING ADVAIR HFA 230-21 MCG/ACT AEROSOL 2 PUFFS INHALATION TWICE A DAY TAKING CENTRUM SILVER - TABLET ORALLY TAKING DILTIAZEM HCL 60 MG TABLET 1 TABLET ORALLY AT BEDTIME TAKING OMEPRAZOLE 20 MG CAPSULE DELAYED RELEASE 2 CAPSULES ORALLY ONCE A DAY TAKING ROSUVASTATIN CALCIUM 20 MG TABLET TAKE ONE TABLET BY MOUTH EVERY DAY NOT-TAKING FLUNISOLIDE 25 MCG/ACT (0.025%) SOLUTION 2 DROPS IN EACH NOSTRIL NASALLY TWICE A DAY NOT-TAKING PREMARIN 0.625 MG/GM CREAM 0.5 GM VAGINAL 2X WEEKLY NOT-TAKING ESTRACE 0.1 MG/GM CREAM DIRECTED VAGINAL 2X WEEKLY NOT-TAKING INCRUSE ELLIPTA 62.5 MCG/INH AEROSOL POWDER BREATH ACTIVATED 1 PUFF INHALATION ONCE A DAY NOT-TAKING COMBIVENT RESPIMAT 20-100 MCG/ACT AEROSOL SOLUTION 1 PUFF INHALATION FOUR TIMES DAILY NOT-TAKING CHANTIX STARTING MONTH AMOS 0.5 MG X 11 & 1 MG X 42 TABLET DIRECTED ORALLY ONCE DAILY NOT-TAKING CHANTIX CONTINUING MONTH AMOS 1 MG TABLET 1 TAB ORALLY TWICE DAILY MEDICATION LIST REVIEWED AND RECONCILED WITH THE PATIENT PAST MEDICAL HISTORY HYPERLIPIDEMIA 2B NICOTINE ADDICTION-1 PPD SINCE 17Y COPD-GOLD STAGE III-04/2016 FEV1 930 CC (RATIO 45%), 22% CHANGE C BRONCHODIL TUBULAR ADENOMA BY COLONOSCOPY NOVEMBER 2009-[facility]/SMALL CECAL TUBULAR ADENOMA BY 04/2015 COLONOSCOPY-W CHRONIC GASTRITIS/HIATAL HERNIA BY EGD NOVEMBER 2009-[facility] CERVICAL DJD-MODERATE CENTRAL CANAL STENOSIS, MULTI-LEVEL DJD, B C6/7 COMPRESSION BY 02/2014 MRI LUMBAR DJD, HISTORY OF T11 COMPRESSION FRACTURE-ON WORKMEN'S COMP. VITAMIN D DEFICIENCY MICROSCOPIC HEMATURIA-01/2012 NORMAL CYSTOSCOPY-NAS/NORMAL CT A/P HEMATURIA PROTOCOL LEFT FOOT CHRONIC EXTENSOR TENDINITIS-2009 MRI GLAUCOMA OSTEOPENIA H PYLORI TREATED C PREVPAC-11/2010 B MILD CTS BY 08/2013 NCS 08/2013-[facility] PT ROS[place]NA STAGE IV [id number] POORLY DIFFERENTIATED ADENOCARCINOMA OF ROS[place] BY 08/26/2016 CT GUIDED BIOPSY ALLERGIES ZYBAN: INCREASING AGITATION - SIDE EFFECTS LYRICA: SEDATING - SIDE EFFECTS SURGICAL HISTORY LEIF/BSO SECONDARY TO MENORRHAGIA/FIBROIDS 1987 APPENDECTOMY 1974 L3-S1 LUMBAR LAMINECTOMY-DR. HERNANDEZ 11/2012 FAMILY HISTORY FATHER: ALIVE, HTN, HYPERLIPIDEMIA MOTHER: ALIVE, HTN, PRE-DIABETES MELLITUS SIBLINGS: 1 SISTER AT CHILDBIRTH, BROTHERS POSITIVE FOR LUNG DISEASE, GOUT, ARTHRITIS, , LIVER FAILURE, ALCOHOL ABUSE MATERNAL GRAND MOTHER: ALIVE 3 BROTHER(S) , 1 SISTER(S) . 1 SON(S) - HEALTHY. NO KNOWN FAMILY HX OF BLADDER OR KIDNEY CANCER. MATERNAL GRANDMOTHER-[facility]. SOCIAL HISTORY GENERAL: TOBACCO USE ARE YOU A:FORMER SMOKER HOW LONG HAS IT BEEN SINCE YOU LAST SMOKED?3-6 MONTHS LATEX QUESTIONNAIRE LATEX ALLERGY : HAVE YOU EVER DEVELOPED ANY TYPE OF REACTION AFTER HANDLING LATEX PRODUCTS SUCH RUBBER GLOVES, CONDOMS, DIAPHRAGMS, BALLOONS, SOCKS, OR UNDERWEAR?NO LATEX ALLERGY : HAVE YOU EVER DEVELOPED ANY TYPE OF REACTION DURING OR AFTER DENTAL APPOINTMENT, VAGINAL/RECTAL EXAMINATION, SURGICAL PROCEDURE, OR ANY OTHER EXPOSURE?NO DATE ASKED : 04/12/2019 LATEX RISK : HAVE YOU EVER HAD ANY DIFFICULTY BREATHING OR HIVES AFTER EATING OR HANDLING ANY FRUITS, OR VEGETABLES; SUCH KIWI, BANANAS, STONE FRUITS, OR CHESTNUTSNO LATEX RISK : DO YOU HAVE A PREVIOUS PERSONAL HISTORY OF MORE THAN NINE SURGERIES, SPINA BIFIDA, OR REPEATED CATHERIZATIONS? NO LATEX RISK : ARE YOU FREQUENTLY EXPOSED TO LATEX PRODUCTS IN YOUR OCCUPATION?NO ALCOHOL SCREENING DID YOU HAVE A DRINK CONTAINING ALCOHOL IN THE PAST YEAR?YES HOW OFTEN DID YOU HAVE SIX OR MORE DRINKS ON ONE OCCASION IN THE PAST YEAR?NEVER (0 POINTS) HOW MANY DRINKS DID YOU HAVE ON A TYPICAL DAY WHEN YOU WERE DRINKING IN THE PAST YEAR?1 OR 2 (0 POINTS) HOW OFTEN DID YOU HAVE A DRINK CONTAINING ALCOHOL IN THE PAST YEAR?MONTHLY OR LESS (1 POINT) POINTS1 INTERPRETATIONNEGATIVE RECREATIONAL DRUG USE DRUG USE?YES HOW OFTEN AND HOW MUCH? MARIJUANA- TO HELP WITH APPITETITE CAFFEINE >5/DAY. SEXUAL HX HAD SEX IN THE LAST 12 MONTHS (VAGINAL, ORAL, OR ANAL)?NO HIV / HEP-C SCREENING HIV TEST OFFERED TO PATIENT:YES DATE OFFERED:05/25/2016 TEST ACCEPTED:NO HEP-C TEST OFFERED TO PATIENT:YES DATE OFFERED:05/25/2016 REASON:PATIENT DECLINED TEST ACCEPTED:YES LUTHERAN LUTHERAN NO BAHAI BELIEFS THAT WOULD IMPACT HEALTH CARE. LANGUAGE LANGUAGES SPOKEN:ESTONIAN LEARNING BARRIERS / SPECIAL NEEDS CHANGE FROM LAST VISIT?NO 01/16/2018 BARRIERS TO LEARNING?NO HEARING IMPAIRED?NO VISION IMPAIRED?NO COGNITIVELY IMPAIRED?NO READINESS TO LEARN?YES LEARNING PREFERENCES?NO LEARNING CAPABILITIES PRESENT?YES EMOTIONAL BARRIERS?NO SPECIAL DEVICES?NO MEDICAL DOCTOR NUCLEAR MEDICINE NEEDED?NO DOMESTIC VIOLENCE DO YOU FEEL SAFE IN YOUR ENVIRONMENT?YES OCCUPATION: DISABLED.. DIET: REGULAR. EXERCISE: NO REGULAR EXERCISE. MARITAL STATUS: .. ADVANCE DIRECTIVE ADVANCE DIRECTIVE DISCUSSED WITH PATIENT:YES [facility] COOK AT [facility]. HOSPITALIZATION/MAJOR DIAGNOSTIC PROCEDURE SURGICAL RELATED CHILDBIRTH 1977 REVIEW OF SYSTEMS CONSTITUTIONAL: ANY RECENT FEVER NO . CHILLS NO . WEIGHT CHANGE OF UNKNOWN REASONS NO . GASTROENTEROLOGY: NEW UNEXPLAINABLE CHANGES IN BOWEL CONTROL NO . CONSTIPATION NO . GENITOURINARY: ANY NEW CHANGE IN BLADDER CONTROL? NO . NEUROLOGY: NEW ONSET DIZZINESS OR NEUROLOGICAL CHANGES NOT MENTIONED NO . NEW NUMBNESS OR PAIN PATTERNS NOT MENTIONED AND PERTINENT TO TODAY'S VISIT NO . CARDIOLOGY: NEW CHEST PRESSURE NO . PATIENT DENIES NO . RESPIRATORY: UNEXPLAINABLE COUGH NO . NEW SHORTNESS OF BREATH NO . VITAL SIGNS WT 108.0 LBS, HT 62 IN, BMI 19.75 INDEX, BP 195/96 MM HG, HR 106 /MIN, RR 18 /MIN, TEMP 96.0 F, OXYGEN SAT % 92%, SAFE IN ENV? (Y/N) Y, NA INITIALS AW 1308, REVIEWED BY: EM. EXAMINATION GENERAL EXAMINATION: GENERALNO ACUTE DISTRESS, WELL NOURISHED AND HYDRATED. PSYCHAPPROPRIATE MOOD AND AFFECT . NECK:NONTENDER WITH PALPATION . LUNGS:CLEAR TO AUSCULTATION BILATERALLY, NO WHEEZES, RHONCHI, RALES. HEART:NO MURMURS, REGULAR RATE AND RHYTHM. ASSESSMENTS CERVICALGIA - M54.2 (PRIMARY) TREATMENT CERVICALGIA START TIZANIDINE HCL TABLET, 2 MG, 1 TABLET NEEDED, ORALLY, THREE TIMES A DAY FOR SEVERE PAIN EPISODES, 30 DAYS, 45, REFILLS 1 [facility] MRI SPINE, CERVICAL WITHOUT [id number] NOTES: PATIENT IS CONSIDERING THE USE OF MEDICAL MARIJUANA. SHE HAS A GREEN CARD. WE WILL AVOID NARCOTIC PAIN MEDICATIONS. RECOMMEND TRYING TIZANIDINE 2 MG TABLET 1 NEEDED UP TO 3 TIMES A DAY FOR SEVERE PAIN EPISODES. MRI OF THE CERVICAL SPINE IS ORDERED TODAY. FOLLOW-UP AT PAIN CENTER IN 2 MONTHS . OTHERS NOTES: TIZANIDINE MATERIAL WAS PRINTED, REVIEWED AND GIVEN TO PT. EM. PROCEDURE CODES FA211 ESTABILISHED PATIENT [facility] CHARGE DISPOSITION & COMMUNICATION FOLLOW UP 2 MONTHS (REASON: REVIEW MRI C-SPINE, CHECK ON EFFECTIVE DOSE OF TIZANIDINE) ELECTRONICALLY SIGNED BY XAVIER WATKINS ON 06/30/2020 AT 02:15 PM EDT DISCLAIMER : THIS IS A VISIT SUMMARY EXTRACTED FROM THE [employer] CHART. IT IS NOT A COPY OF THE [employer] PROGRESS NOTE. JINA
== END ==
LOC: M PAIN 13:00
PROVIDERS: ATTEND Nurse Practitioner Family
DX: M54.2 Cervicalgia (principal); J44.9 Chronic obstructive pulmonary disease, unspecified; E55.9 Vitamin D deficiency, unspecified; Z87.891 Personal history of nicotine dependence; Z85.118 Personal history of other malignant neoplasm of bronchus and lung; Z88.8 Allergy status to other drugs, medicaments and biological substances; Z79.82 Long term (current) use of aspirin; Z79.51 Long term (current) use of inhaled steroids; Z79.899 Other long term (current) drug therapy

== ENCOUNTER → 2020-06-16 | Outpatient (CLI) | payer MEDICARE, MEDICAID ==
[2020-06-16 11:06] LABS: BASO # 0.1 10^3/uL (0.0-0.2); BASO % 0.7 % (0.0-1.0); EOS # 0.1 10^3/uL (0.0-0.5); EOS % 1.8 % (0.0-3.0); HEMATOCRIT 46.2 % (36.0-47.0); HEMOGLOBIN 15.2 g/dl (12.0-15.5); LYMPH # 1.4 10^3/uL (1.5-5.0); LYMPH % 18.9 % (24.0-44.0); MEAN CORPUSCULAR HEMOGLOBIN 30.5 pg (27.0-33.0); MEAN CORPUSCULAR HGB CONC 32.9 g/dl (32.0-36.5); MEAN CORPUSCULAR VOLUME 92.6 fl (80.0-96.0); MONO # 0.6 10^3/uL (0.0-0.8); MONO % 7.6 % (2.0-8.0); NEUTROPHILS # 5.2 10^3/uL (1.5-8.5); NEUTROPHILS % 70.7 % (36.0-66.0); PLATELET COUNT, AUTOMATED 234 10^3/uL (150-450); RED BLOOD COUNT 4.99 10^6/uL (4.00-5.40); WHITE BLOOD COUNT 7.4 10^3/uL (4.0-10.0)
[2020-06-16 11:31] LABS: ALT/SGPT 23 U/L (12-78); BILIRUBIN,TOTAL 0.3 MG/DL (0.2-1.0); BLOOD UREA NITROGEN 10 MG/DL (7-18); CALCIUM LEVEL 9.3 MG/DL (8.5-10.1); CARBON DIOXIDE LEVEL 26 MEQ/L (21-32); CHLORIDE LEVEL 107 MEQ/L (98-107); CREATININE FOR GFR 0.74 MG/DL (0.55-1.30); GLOMERULAR FILTRATION RATE > 60.0 (>51); GLUCOSE, FASTING 145 MG/DL (70-100); POTASSIUM SERUM 3.5 MEQ/L (3.5-5.1); SODIUM LEVEL 140 MEQ/L (136-145); TOTAL PROTEIN 7.6 GM/DL (6.4-8.2)
[2020-06-16 13:35] LABS: FREE T4 1.22 NG/DL (0.76-1.46); THYROID STIMULATING HORMONE 0.42 uIU/ML (0.358-3.740)
== END ==
LOC: M ONCR 10:36
PROVIDERS: ATTEND General Practice
DX: C34.12 Malignant neoplasm of upper lobe, left bronchus or lung (principal); Z79.899 Other long term (current) drug therapy

== ENCOUNTER → 2020-06-23 | Outpatient (CLI) | payer MEDICARE, MEDICAID ==
[~2020-06-23] MED LIST changes: +ISOVUE-370 76% 100ML VIAL As Ordered ONE
--- NOTE | 2020-06-23 14:46 | REP ---
INDICATION: NSCLC. COMPARISON: Multiple the latest 01/23/2020 noncontrast enhanced exam TECHNIQUE: Standard helical technique after the intravenous administration of 100 cc Isovue 370 FINDINGS: The mediastinum and pulmonary bassem are essentially stable showing no evidence of interim development of a mass or adenopathy. There are no pleural or pericardial effusions. There is no significant change in appearance of the imaged upper abdomen or imaged osseous structures. Evaluation of the lung woodruff shows a spiculated nodule in the left upper lobe which today measures approximately 1.1 x 0.9 x 0.9 cm. This has decreased slightly in size when compared to the prior exam. The tiny nodule seen previously in the right apical region is stable. Once again, there is a patchy somewhat curvilinear opacity seen in the inferior right middle lobe status quo. Once again, the lung woodruff are hyperexpanded and there is cylindrical bronchiectasis status quo. No new abnormal nodules, masses, or opacities seem to have developed. IMPRESSION: The spiculated nodule seen previously in the left upper lobe appears to have decreased somewhat in size as described above. Other findings as described above. <Electronically signed by Jaleel Sierra > 06/23/20 [id number]
== END ==
LOC: M RAD 12:32
PROVIDERS: ATTEND General Practice
DX: C34.12 Malignant neoplasm of upper lobe, left bronchus or lung (principal)
CPT/HCPCS: 71260; Q9967

== ENCOUNTER → 2020-06-25 | Outpatient (CLI) | payer MEDICARE, MEDICAID ==
[~2020-06-25] MED LIST changes: +COVI100V IM; -ISOVUE-370 76% 100ML VIAL As Ordered ONE; +OSTE1TAB2 PO; +TESS100C PO
--- NOTE | 2020-06-25 14:09 | RADONC ---
Radiation Oncology Hx/FUP Radiation Oncology Hx/FUP Date of Service: Jun 25, 2020 Pt Identifier Claudia Robles is a 60 year old female current smoker with NSCLC diagnosed in 2017 with bilateral lung nodules unclear if synchronous primaries or M1a. She has had a durable response to keytruda monotherapy (now s/p cycle 54) and was seen 03/05/20 for consideration of SBRT for a metachronous ROSANNA nodule which had grown on serial CT scans and was concerning for a new primary cancer. She completed SBRT to the ROSANNA nodule 60 Gy in 5 fractions on 03/28/20. Diagnosis/Treatment History Oncologic History Presented in 2017 with BL lung nodules a single RUL nodule, and 2 left upper lobe lung nodules (evidence on PET from 09/08/16). Biopsy showing adenocarcinoma. She was started on keytruda 08/2016. She experienced metabolic CR. On 01/24/19 she had a PET-CT which showed a new hypermetabolic ROSANNA nodule measuring 7 mm. This has steadily grown on serial CTs, now measuring 1.2 cm on scan from 01/23/20. 03/24/20-03/28/20 SBRT to ROSANNA nodule 60 Gy in 5 fractions. Recent data: 06/23/20 CT chest FINDINGS: The mediastinum and pulmonary bassem are essentially stable showing no evidence of interim development of a mass or adenopathy. There are no pleural or pericardial effusions. There is no significant change in appearance of the imaged upper abdomen or imaged osseous structures. Evaluation of the lung woodruff shows a spiculated nodule in the left upper lobe which today measures approximately 1.1 x 0.9 x 0.9 cm. This has decreased slightly in size when compared to the prior exam. The tiny nodule seen previously in the right apical region is stable. Once again, there is a patchy somewhat curvilinear opacity seen in the inferior right middle lobe status quo. Once again, the lung woodruff are hyperexpanded and there is cylindrical bronchiectasis status quo. No new abnormal nodules, masses, or opacities seem to have developed. IMPRESSION: The spiculated nodule seen previously in the left upper lobe appears to have decreased somewhat in size as described above. Other findings as described above. In addition there is a new 0.7 cm x 0.7 cm round RLL nodule not called on the formal read it has been annotated on the study by me. Interval History Claudia is here feeling relatively well. She has been tolerating Keytruda. She has musculosketal pains in varying places, anterior chest, back, knees, longstanding. She did experience a single episode where she coughed up bloody mucus in April 2020 but the amount was not much and she had no pain or further bleeding after. She has stable LANIER. No focal left sided pain in the ribs or CW. Her appetite is fair and her weight is stable. Does not wish to quit smoking. Current Therapy Keytruda q3w Stage [id number] ROSANNA NSCLC (presumed) stage IA2 Social History: Current smoker 40 pack year Non-drinker Allergies / Meds Allergies: Coded Allergies: pregabalin (Verified Allergy, Unknown, 06/01/18) varenicline (Verified Allergy, Unknown, 06/01/18) Home Meds Active Scripts Levothyroxine Sodium (LEVOTHYROXINE SODIUM) 50 Mcg Tab, 50 MCG PO DAILY for 30 Days, #30 TAB 2 Refills Prov:Vida Teresa MD 07/04/19 Ipratropium/Albuterol Sulfate (Combivent Respimat 20-100 Mcg) 4 Gm Mist.inhal, 1 PUFF INH QID, #1 INHALER Prov:Malaika Ritchie RNNP 12/01/18 Saccharomyces Boulardii (Probiotic) 250 Mg Capsule, 1 CAP PO DAILY for 14 Days, #14 CAP 11 Refills one cap daily while on levofloxacin Prov:Vida Teresa MD 09/08/18 Ondansetron (Ondansetron Odt) 4 Mg Tab, 4 MG PO Q6P PRN for NAUSEA for 7 Days, #10 TAB Prov:JULIUS CURRAN RADIO ARTIST 05/11/18 Reported Medications Cholecalciferol (Vitamin D3) (Vitamin D3) 1,000 Unit Tablet, 2000 UNITS PO DAILY, TAB 01/23/20 Naproxen Sodium (Naproxen Sodium) 220 Mg Capsule, 220 MG PO PRN for 30 Days, CAP 08/17/18 Menthol (Biofreeze) 118 Ml Gel..ml., 1 APLCT TOP PRN for 7 Days, #118 ML 08/17/18 [Pembrolizumab 200MG] No Conflict Check, 1 DOSE INJ ASDIRECTED EVERY 3 WEEKS. DUE 03/10/18. 03/08/18 Flunisolide (Flunisolide) 200 Sprays/25 Ml Naspr, 2 SPRAYS NARES BID PRN for CONGESTION 03/08/18 Omeprazole (Omeprazole) 20 Mg Cap, 20 MG PO BID 03/08/18 Rosuvastatin Calcium (Rosuvastatin Calcium) 20 Mg Tab, 20 MG PO QHS 03/08/18 Aspirin (Aspirin EC) 81 Mg Tab, 81 MG PO QHS 12/16/17 Umeclidinium [place] (Incruse Ellipta) 62.5 Mcg/Inh Inh, 62.5 MCG INH QHS 12/16/17 Diltiazem HCl (Diltiazem HCl) 60 Mg Tab, 60 MG PO QHS 05/26/15 Alendronate Sodium (Alendronate Sodium) 70 Mg Tab, 70 MG PO QWEEK TAKES ON FRIDAYS. 05/26/15 Fluticasone Propion/Salmeterol (Advair Hfa 230-21 Mcg Inhaler) 1 Aer Aer, 1 PUFF INH DAILY, INHALER 05/26/15 Review of Systems Review of Systems Constitutional: Reports: Fatigue; Denies: Chills, Weakness, Weight Loss Eyes: Denies: Pain HEENT: Denies: Head Aches Skin: Denies: Rash Pulmonary: Reports: Dyspnea, Cough; Denies: Pleuritic Chest Pain Cardiovascular: Denies: Chest Pain Gastrointestinal: Denies: Abdominal Pain Musculoskeletal: Reports: Back pain, Leg pain; Denies: Neck pain Neurological: Denies: Weakness, Numbness Psych: Reports: Mood Normal Physical Examination Vital Signs Wt 108 lbs T 97 P 87 RR 20 BP 154/78 O2 98% Pain 0 Fatigue 1 General Exam: Positive: Alert, Cooperative, No Acute Distress Eye Exam: Positive: PERRLA, EOMI ENT EXAM: Positive: Atraumatic Neck Exam: Positive: Supple; Negative: Lymphadenopathy Chest Exam: Positive: Clear to auscultation, Normal air movement Heart Exam: Positive: Rate Normal, Regular Rhythm Abdomen Exam: Positive: Soft Extremity Exam: Negative: Edema Skin Exam: Positive: Nl turgor and temperature Neuro Exam: Positive: Normal Gait, Normal Speech, Cranial Nerves 3-12 NL Psych Exam: Positive: Mental status NL Diagnostic and Laboratory Diagnostic Review Radiologic images, relevant labs and pathology reports were personally reviewed and discussed with Ms. Robles. Assessment and Plan Impression Assessment Ms. Robles is a 60 year old female current smoker with NSCLC diagnosed in 2017 with bilateral lung nodules unclear if synchronous primaries or M1a. She has had a durable response to keytruda monotherapy (now s/p cycle 54) and was seen for consideration of SBRT for a metachronous ROSANNA nodule which had grown on serial CT scans and was concerning for a new primary cancer. She completed SBRT to the ROSANNA nodule 60 Gy in 5 fractions on 03/28/20. She is doing well clinically. She has no apparent side effects from SBRT. The treated lesion in the ROSANNA is responding appropriately, now smaller and surrounded by typical post-radiation interstitial changes. She does had a new subcentimeter round nodule on the recent CT chest which was not mentioned in the report. It is in the RLL and 0.7 cm x 0.7 cm. I discussed that this nodule should be followed and if it continues to grow it is likely another cancer. I will obtain another [address] scan and see her back at that time. If the lesion grows then I will discuss with Dr. Bang whether additional SBRT or a change in systemic therapy would be warranted. Claudia agreed with the plan. Performance Status ECOG [address] chest in 3 months time Ms. Robles was encouraged to call with questions or concerns in the interim period. Billing Statement Total time of [21] minutes was spent preparing for the visit [1], obtaining HPI [4], examining the patient [2], reviewing diagnostic tests [4], discussing management options [4], coordinating care [1], and writing this note [7]. JOLLY DILL MD Jun 25, 2020 14:09
== END ==
LOC: M ONCR 12:55
PROVIDERS: ATTEND General Practice
DX: C34.12 Malignant neoplasm of upper lobe, left bronchus or lung (principal)

== ENCOUNTER → 2020-07-01 | Outpatient (REF) | payer MEDICARE, MEDICAID ==
[2020-07-01 16:52] LABS: BASO % 0.5 % (0.0-1.0); EOS # 0.3 10^3/uL (0.0-0.5); EOS % 5.1 % (0.0-3.0); HEMATOCRIT 43.7 % (36.0-47.0); HEMOGLOBIN 14.5 g/dl (12.0-15.5); LYMPH # 1.8 10^3/uL (1.5-5.0); LYMPH % 27.4 % (24.0-44.0); MEAN CORPUSCULAR HGB CONC 33.2 g/dl (32.0-36.5); MEAN CORPUSCULAR VOLUME 93.4 fl (80.0-96.0); MONO # 0.6 10^3/uL (0.0-0.8); MONO % 9.4 % (2.0-8.0); NEUTROPHILS # 3.7 10^3/uL (1.5-8.5); NEUTROPHILS % 57.3 % (36.0-66.0); PLATELET COUNT, AUTOMATED 209 10^3/uL (150-450); RED BLOOD COUNT 4.68 10^6/uL (4.00-5.40); WHITE BLOOD COUNT 6.5 10^3/uL (4.0-10.0)
[2020-07-01 17:19] LABS: ALBUMIN 3.8 GM/DL (3.2-5.2); ALT/SGPT 20 U/L (12-78); BILIRUBIN,TOTAL 0.4 MG/DL (0.2-1.0); BLOOD UREA NITROGEN 10 MG/DL (7-18); CALCIUM LEVEL 8.6 MG/DL (8.5-10.1); CARBON DIOXIDE LEVEL 30 MEQ/L (21-32); CHLORIDE LEVEL 109 MEQ/L (98-107); CHOLESTEROL LEVEL 129 MG/DL (<200); CREATININE FOR GFR 0.63 MG/DL (0.55-1.30); FREE T4 1.23 NG/DL (0.76-1.46); GLOMERULAR FILTRATION RATE > 60.0 (>51); GLUCOSE, FASTING 96 MG/DL (70-100); HDL CHOLESTEROL 52 MG/DL (>40); LDL CHOLESTEROL 59 MG/DL (<100); NON-HDL-C 77 MG/DL; POTASSIUM SERUM 3.7 MEQ/L (3.5-5.1); SODIUM LEVEL 144 MEQ/L (136-145); TOTAL PROTEIN 6.7 GM/DL (6.4-8.2); TRIGLYCERIDES LEVEL 90 MG/DL (<150)
[2020-07-01 17:39] LABS: PTH INTACT 41.6 PG/ML (18.5-88.0); TOTAL 25(OH) VITAMIN D 18.1 NG/ML (30.0-100.0)
[2020-07-01 18:14] LABS: HEMOGLOBIN A1c 5.7 %
== END ==
LOC: M LABDRWCV 15:48
PROVIDERS: ATTEND Family Medicine
DX: E78.2 Mixed hyperlipidemia (principal); E55.9 Vitamin D deficiency, unspecified; Z79.899 Other long term (current) drug therapy

== ENCOUNTER → 2020-07-11 | Outpatient (CLI) | payer MEDICARE, MEDICAID ==
--- NOTE | 2020-07-11 14:04 | REPVR ---
PROCEDURE INFORMATION: Exam: MR Cervical Spine Without Contrast Exam date and time: 07/11/2020 11:59 AM Age: 60 years old Clinical indication: Neck pain; Additional info: Cervicalgia TECHNIQUE: Imaging protocol: Multiplanar magnetic resonance images of the cervical spine without contrast. COMPARISON: PT PET/CT Skull/mid thigh 09/11/2019 3:37 PM FINDINGS: Vertebrae: There is reversal of cervical lordosis centered at C3-C4. There is grade 1 anterolisthesis of C3 on C4. There is grade 1 retrolisthesis of C4 on C5, C5 on C6, and C6 on C7. Craniocervical junction appears unremarkable. Normal position of cerebellar tonsils without evidence of Chiari I malformation. There is disc desiccation. There is disc height loss C4-C5 through C6-C7. There are endplate degenerative marrow changes. Spinal cord: Cervical spinal cord signal is normal without intrinsic cord lesions. C2-C3: There is no significant disc bulge. There is no significant cord compression or spinal stenosis. There are uncinate and facet osteophytes likely with mild bilateral neural foraminal narrowing. C3-C4: There is mild posterior osteophyte disc complex. There is no significant cord compression or spinal stenosis. There are uncinate and facet osteophytes asymmetric to left with no significant right and moderate to severe left neural foraminal narrowing. C4-C5: There is posterior osteophyte disc complex. There is no significant cord compression and mild to moderate spinal stenosis. There are uncinate and facet osteophytes with severe bilateral neural foraminal narrowing. C5-C6: There is posterior osteophyte disc complex. There is no significant cord compression and orcw-bi-fbogxylr spinal stenosis. There are uncinate and facet osteophytes with severe bilateral neural foraminal narrowing. C6-C7: There is posterior osteophyte disc complex. There is no significant cord compression and moderate spinal stenosis. There are uncinate and facet osteophytes with severe bilateral neural foraminal narrowing. C7-T1: There is mild disc bulge. There is no significant cord compression. There is no neural foraminal or spinal stenosis. T1-T2: There is likely moderate neural foraminal narrowing and no spinal stenosis. Soft tissues: Unremarkable. Vertebral arteries: Expected flow voids in the vertebral arteries. IMPRESSION: Degenerative changes as described. There is multilevel significant neural foraminal narrowing including left C3-C4 and bilateral C4-C5 through C6-C7, which is similar to prior CT. Sjsa-mc-[id number] degrees of spinal stenosis without evidence of significant cord deformity. Electronically signed by: Malaika Brooks On 07/11/2020 14:03:51 PM
== END ==
LOC: M RAD 11:11
PROVIDERS: ATTEND Nurse Practitioner Family
DX: M54.2 Cervicalgia (principal)

== ENCOUNTER → 2020-08-08 | Outpatient (CLI) | payer MEDICARE, MEDICAID ==
--- NOTE | 2020-08-14 03:16 | ECWPNPC ---
PATIENT NAME: KRISTIE REED : 1960 GENDER: FEMALE VISIT DATE: 08/08/2020 DISCHARGE DATE: 08/08/20 1132 VISIT LOCKED DATE TIME: PHYSICIAN: PAULIE HATHAWAY PHYSICIAN PAGER NO: ACTIVE RESOURCE: PAULIE HATHAWAY REASON FOR APPOINTMENT 1. REVIEW MRI C-SPINE, CHECK ON EFFECTIVE DOSE OF TIZANIDINE HISTORY OF PRESENT ILLNESS GENERAL: HERE FOR FOLLOW-UP OF PERSISTENT NECK PAIN. REVIEWED MRI OF CERVICAL SPINE THAT I ORDERED AT LAST VISIT. THIS IS SHOWING MULTILEVEL DEGENERATIVE CHANGES WITH CERVICAL SPINAL STENOSIS NOTED. DISCUSSED PROCEDURES TO INCLUDE CERVICAL FACET BLOCKS. REVIEWED POTENTIAL RISKS ASSOCIATED WITH INJECTIONS. OVERALL PATIENT FEELS SHE IS DOING WELL WITH MEDICAL MARIJUANA AND ACCOUNT ADJUSTER. SHE WOULD LIKE TO HOLD OFF ON INJECTIONS IF POSSIBLE. SHE HAS NOT USED TIZANIDINE THAT I ORDERED AT HER INITIAL VISIT. STATES MEDICAL MARIJUANA IS HELPING SO SHE DOES NOT NEED ANY OTHER MEDICATIONS. -. FALL RISK SCREENING: SCREENING : NO FALLS REPORTED IN THE LAST YEAR. PAIN SCREENING: PATIENT HAS A COMPLAINT OF ACUTE OR CHRONIC PAIN :YES LOCATION OF PAIN:NECK INTENSITY OF PAIN (SCALE OF 1 TO 10):7 WHAT DOES YOUR PAIN FEEL LIKE:ACHING, BURNING DURATION:CONTINOUS, CONSTANT, ALL DAY PAIN IS INCREASED BY:ACTIVITIES, OTHERS DRIVING PAIN IS DECREASED BY:OTHERS RESTING NURSING NOTE: -. PAIN CENTER INTAKE QUESTIONS: DO YOU HAVE A HISTORY OF MRSA? :NO DO YOU TAKE A BLOOD THINNERS? :NO ASPIRIN 81 MG DO YOU HAVE ANY BLEEDING DISORDERS? :NO ANY NEW NUMBNESS OR WEAKNESS IN YOUR LEGS OR ARMS? :YES LEGS, HANDS ANY PACEMAKER,DEFIBRILLATOR, OR DORSAL COLUMN STIMULATOR? :NO DO YOU HAVE ANY RASHES OR OPEN SORES? :NO ARE YOU ALLERGIC TO IV DYE? :NO ARE YOU DIABETIC? :NO ANY NEW PROBLEMS WITH YOUR MEDICATIONS? :NO HAVE YOU RECEIVED A VACCINE IN THE PAST 30 DAYS? :YES IF SO WHAT VACCINE AND WHEN? #2 COVID VACCINE 06/02/20 DO YOU PLAN TO RECEIVE A VACCINE IN THE NEXT 21 DAYS? :NO DO YOU NEED ANY PRESCRIPTION? :NO DO YOU TAKE ANY IMMUNOSUPPRESSIVE MEDICATIONS? :YES KEYTRUDA Q 3 WEEKS FOR LUNG CANCER CURRENT MEDICATIONS TAKING ASPIRIN 81 MG TABLET 1 TAB(S) ORALLY DAILY TAKING CLOTRIMAZOLE 10 MG TELLO 1 TELLO MOUTH/THROAT QID TAKING OMEPRAZOLE 20 MG CAPSULE DELAYED RELEASE 2 CAPSULES ORALLY ONCE A DAY TAKING LEVOTHYROXINE SODIUM 50 MCG TABLET 1 TABLET ON AN EMPTY STOMACH IN THE MORNING ORALLY ONCE A DAY TAKING CLARITIN 10 MG TABLET 1 TABLET ORALLY ONCE A DAY TAKING FLUNISOLIDE 25 MCG/ACT (0.025%) SOLUTION 2 DROPS IN EACH NOSTRIL NASALLY TWICE A DAY TAKING ROSUVASTATIN CALCIUM 20 MG TABLET 1 TABLET ORALLY ONCE A DAY TAKING PREMARIN 0.625 MG/GM CREAM 0.5 GM VAGINAL 2X WEEKLY TAKING COMBIVENT RESPIMAT 20-100 MCG/ACT AEROSOL SOLUTION 1 PUFF INHALATION FOUR TIMES A DAY TAKING INCRUSE ELLIPTA 62.5 MCG/INH AEROSOL POWDER BREATH ACTIVATED 1 PUFF INHALATION ONCE A DAY TAKING ADVAIR HFA 230-21 MCG/ACT AEROSOL 2 PUFFS INHALATION TWICE A DAY TAKING TIZANIDINE HCL 2 MG TABLET 1 TABLET NEEDED ORALLY THREE TIMES A DAY FOR SEVERE PAIN EPISODES TAKING CENTRUM SILVER - TABLET ORALLY TAKING OMEPRAZOLE 20 MG CAPSULE DELAYED RELEASE 2 CAPSULES ORALLY ONCE A DAY TAKING VITAMIN D 2000 UNIT TABLET 2 TABLETS ORALLY DAILY TAKING DILTIAZEM HCL 60 MG TABLET 1 TABLET ORALLY AT BEDTIME NOT-TAKING ROSUVASTATIN CALCIUM 20 MG TABLET TAKE ONE TABLET BY MOUTH EVERY DAY MEDICATION LIST REVIEWED AND RECONCILED WITH THE PATIENT PAST MEDICAL HISTORY HYPERLIPIDEMIA 2B NICOTINE ADDICTION-1 PPD SINCE 17Y COPD-GOLD STAGE III-04/2016 FEV1 930 CC (RATIO 45%), 22% CHANGE C BRONCHODIL TUBULAR ADENOMA BY COLONOSCOPY NOVEMBER 2009-[facility]/SMALL CECAL TUBULAR ADENOMA BY 04/2015 COLONOSCOPY-W CHRONIC GASTRITIS/HIATAL HERNIA BY EGD NOVEMBER 2009-[facility] CERVICAL DJD-MODERATE CENTRAL CANAL STENOSIS, MULTI-LEVEL DJD, B C6/7 COMPRESSION BY 02/2014 MRI LUMBAR DJD, HISTORY OF T11 COMPRESSION FRACTURE-ON WORKMEN'S COMP. VITAMIN D DEFICIENCY MICROSCOPIC HEMATURIA-01/2012 NORMAL CYSTOSCOPY-NAS/NORMAL CT A/P HEMATURIA PROTOCOL GLAUCOMA OSTEOPENIA B MILD CTS BY 08/2013 NCS [facility] [place] STAGE IV [id number] POORLY DIFFERENTIATED ADENOCARCINOMA OF [place] BY 08/26/2016 CT GUIDED BIOPSY ALLERGIES ZYBAN: INCREASING AGITATION - SIDE EFFECTS LYRICA: SEDATING - SIDE EFFECTS SOCIAL HISTORY GENERAL: TOBACCO USE ARE YOU A:CURRENT SMOKER OCC SMOKE ARE YOU INTERESTED IN QUITTING?THINKING ABOUT QUITTING COUNSELED THE PATIENT ON SMOKING CESSATION, EDUCATION [id number]/11/2021 LATEX QUESTIONNAIRE LATEX ALLERGY : HAVE YOU EVER DEVELOPED ANY TYPE OF REACTION AFTER HANDLING LATEX PRODUCTS SUCH RUBBER GLOVES, CONDOMS, DIAPHRAGMS, BALLOONS, SOCKS, OR UNDERWEAR?NO LATEX ALLERGY : HAVE YOU EVER DEVELOPED ANY TYPE OF REACTION DURING OR AFTER DENTAL APPOINTMENT, VAGINAL/RECTAL EXAMINATION, SURGICAL PROCEDURE, OR ANY OTHER EXPOSURE?NO LATEX RISK : HAVE YOU EVER HAD ANY DIFFICULTY BREATHING OR HIVES AFTER EATING OR HANDLING ANY FRUITS, OR VEGETABLES; SUCH KIWI, BANANAS, STONE FRUITS, OR CHESTNUTSNO LATEX RISK : DO YOU HAVE A PREVIOUS PERSONAL HISTORY OF MORE THAN NINE SURGERIES, SPINA BIFIDA, OR REPEATED CATHERIZATIONS? NO LATEX RISK : ARE YOU FREQUENTLY EXPOSED TO LATEX PRODUCTS IN YOUR OCCUPATION?NO DATE ASKED : 08/08/2020 ALCOHOL USE: YES, ONCE IN A WHILE. ALCOHOL SCREENING DID YOU HAVE A DRINK CONTAINING ALCOHOL IN THE PAST YEAR?YES HOW OFTEN DID YOU HAVE SIX OR MORE DRINKS ON ONE OCCASION IN THE PAST YEAR?NEVER (0 POINTS) HOW MANY DRINKS DID YOU HAVE ON A TYPICAL DAY WHEN YOU WERE DRINKING IN THE PAST YEAR?1 OR 2 (0 POINTS) HOW OFTEN DID YOU HAVE A DRINK CONTAINING ALCOHOL IN THE PAST YEAR?MONTHLY OR LESS (1 POINT) POINTS1 INTERPRETATIONNEGATIVE RECREATIONAL DRUG USE DRUG USE?YES HOW OFTEN AND HOW MUCH? MARIJUANA- TO HELP WITH APPITETITE CAFFEINE >5/DAY. SEXUAL HX HAD SEX IN THE LAST 12 MONTHS (VAGINAL, ORAL, OR ANAL)?NO HIV / HEP-C SCREENING HIV TEST OFFERED TO PATIENT:YES DATE OFFERED:05/25/2016 TEST ACCEPTED:NO HEP-C TEST OFFERED TO PATIENT:YES DATE OFFERED:05/25/2016 REASON:PATIENT DECLINED TEST ACCEPTED:YES SYNAGOGUE SYNAGOGUE NO ORIENTAL ORTHODOX BELIEFS THAT WOULD IMPACT HEALTH CARE. LANGUAGE LANGUAGES SPOKEN:SLOVENIAN LEARNING BARRIERS / SPECIAL NEEDS CHANGE FROM LAST VISIT?NO BARRIERS TO LEARNING?NO HEARING IMPAIRED?NO VISION IMPAIRED?YES : READING COGNITIVELY IMPAIRED?NO READINESS TO LEARN?YES LEARNING PREFERENCES?YES :BOOKLETS, HANDOUTS LEARNING CAPABILITIES PRESENT?YES EMOTIONAL BARRIERS?NO SPECIAL DEVICES?YES :WALKER NEEDED MEDICAID BILLING SPECIALIST NEEDED?NO DOMESTIC VIOLENCE DO YOU FEEL SAFE IN YOUR ENVIRONMENT?YES OCCUPATION: DISABLED.. DIET: REGULAR. EXERCISE: NO REGULAR EXERCISE. MARITAL STATUS: .. ADVANCE DIRECTIVE ADVANCE DIRECTIVE DISCUSSED WITH PATIENT:YES [facility]. REVIEW OF SYSTEMS CONSTITUTIONAL: ANY RECENT FEVER NO . CHILLS NO . WEIGHT CHANGE OF UNKNOWN REASONS NO . GASTROENTEROLOGY: NEW UNEXPLAINABLE CHANGES IN BOWEL CONTROL NO . CONSTIPATION NO . GENITOURINARY: ANY NEW CHANGE IN BLADDER CONTROL? NO . NEUROLOGY: NEW ONSET DIZZINESS OR NEUROLOGICAL CHANGES NOT MENTIONED NO . NEW NUMBNESS OR PAIN PATTERNS NOT MENTIONED AND PERTINENT TO TODAY'S VISIT NO . CARDIOLOGY: NEW CHEST PRESSURE NO . PATIENT DENIES NO . RESPIRATORY: UNEXPLAINABLE COUGH NO . NEW SHORTNESS OF BREATH NO . VITAL SIGNS WT 102.6 LBS, HT 62 IN, BMI 18.76 INDEX, BP 153/83 MM HG, HR 87 /MIN, RR 18 /MIN, TEMP 98.4 F, OXYGEN SAT % 94%, SAFE IN ENV? (Y/N) YES, NA INITIALS AW 1048T.DENNIS TERAN, PATIENT STATED THAT HER DOCTOR TOLD HER TO WATCH HER BLOOD PREESURE VERY CLOSELY AT HOME. EXAMINATION GENERAL EXAMINATION: GENERALNO ACUTE DISTRESS, WELL NOURISHED AND HYDRATED. PSYCHAPPROPRIATE MOOD AND AFFECT . NECK:NONTENDER WITH PALPATION . LUNGS:CLEAR TO AUSCULTATION BILATERALLY, NO WHEEZES, RHONCHI, RALES. HEART:NO MURMURS, REGULAR RATE AND RHYTHM. DIAGNOSTIC TESTS REVIEWED MRI C-SPINE-07/11/20. ASSESSMENTS CERVICAL SPINAL STENOSIS - 723.0 (PRIMARY) TREATMENT CERVICAL SPINAL STENOSIS NOTES: PATIENT WILL CONTINUE CONSERVATIVE CARE FOR CHRONIC NECK PAIN. PATIENT WILL CALL CLINIC IF HER CONDITION CHANGES WHERE SHE WANTS TO CONSIDER DOING INJECTIONS. PROCEDURE CODES FA211 ESTABILISHED PATIENT [facility] CHARGE DISPOSITION & COMMUNICATION FOLLOW UP PATIENT WILL CALL FOR FOLLOW-UP (REASON: CERVICAL SPINAL STENOSIS) ELECTRONICALLY SIGNED BY XAVIER WATKINS ON 08/13/2020 AT 09:41 AM EDT DISCLAIMER : THIS IS A VISIT SUMMARY EXTRACTED FROM THE [employer] CHART. IT IS NOT A COPY OF THE [employer] PROGRESS NOTE. JINA
== END ==
LOC: M PAIN 11:00
PROVIDERS: ATTEND Nurse Practitioner Family
DX: M48.02 Spinal stenosis, cervical region (principal); J44.9 Chronic obstructive pulmonary disease, unspecified; E55.9 Vitamin D deficiency, unspecified; F17.200 Nicotine dependence, unspecified, uncomplicated; Z88.8 Allergy status to other drugs, medicaments and biological substances; Z79.82 Long term (current) use of aspirin; Z79.51 Long term (current) use of inhaled steroids; Z79.899 Other long term (current) drug therapy

== ENCOUNTER → 2020-09-10 | Outpatient (CLI) | payer MEDICARE, MEDICAID ==
[~2020-09-10] MED LIST changes: +ALBU8.5H INH; +BUDE0.5S6 INH
--- NOTE | 2020-09-10 11:02 | REP ---
INDICATION: LUNG CA, RESTAGING. History of non-small cell lung carcinoma status post SBRT therapy left upper lobe nodule February of 2020. New right lower lobe nodule May 2020 CT. Surveillance. COMPARISON: Comparison CT study of the chest June 23, 2020. Comparison PET-CT September 11, 2019. CT chest is also reviewed from January 23, 2020.. TECHNIQUE: Helical scanning is acquired. 3 mm axial images are generated. Coronal and sagittal MPR and coronal MIP images are generated. FINDINGS: There is no evidence of pleural or pericardial effusion. Vascular calcification is observed. No hilar or mediastinal mass or adenopathy is seen. The lungs are hyperinflated and emphysematous changes are noted throughout the upper lobes as before consistent with COPD. No evidence of adrenal mass is seen. The visualized upper abdominal structures are otherwise unremarkable. The recently treated left upper lobe nodule is seen peripherally 7 mm in diameter. It appears slightly smaller than on the June 23, 2020 study and is definitely decreased when compared with the January 23, 2020 exam. The superior segment right lower lobe nodule identified on the June 23, 2020 study is again seen 5 mm in diameter somewhat spiculated in appearance and unchanged. There is a stable 3 mm nodule in the right lung apex unchanged. Today's study also demonstrates a new wedge-shaped area of peripheral opacity in the superior and posterior aspect of the right upper lobe. There is some adjacent non solid opacity in this is is felt to be most likely an inflammatory opacity, IV pneumonitis. It measures 1.4 cm in diameter. There are right middle lobe and lingular atelectatic or fibrotic changes again noted as before. IMPRESSION: 1. Advanced COPD. 2. New peripheral wedge-shaped density with adjacent infiltrate right lung apex consistent with small focal zone of pneumonitis. 3. Stable right upper lobe and right lower lobe nodules. The right lower lobe nodule is somewhat spiculated and 5 mm in diameter but unchanged from the most recent prior study. 4. The treated left upper lobe nodule appears yet again slightly smaller. <Electronically signed by Candido Kang > 09/10/20 105
== END ==
LOC: M RAD 10:20
PROVIDERS: ATTEND General Practice
DX: C34.12 Malignant neoplasm of upper lobe, left bronchus or lung (principal); J44.9 Chronic obstructive pulmonary disease, unspecified

== ENCOUNTER → 2020-09-17 | Outpatient (CLI) | payer MEDICARE, MEDICAID ==
--- NOTE | 2020-09-17 14:33 | RADONC ---
Radiation Oncology Hx/FUP Radiation Oncology Hx/FUP Date of Service: Sep 17, 2020 Pt Identifier Claudia Robles is a 60 year old female current smoker with NSCLC diagnosed in 2017 with bilateral lung nodules unclear if synchronous primaries or M1a. She has had a durable response to keytruda monotherapy (now s/p cycle 54) and was seen 03/05/20 for consideration of SBRT for a metachronous ROSANNA nodule which had grown on serial CT scans and was concerning for a new primary cancer. She completed SBRT to the ROSANNA nodule 60 Gy in 5 fractions on 03/28/20. Seen today for ongoing surveillance of the chest. Diagnosis/Treatment History Oncologic History Presented in 2017 with BL lung nodules a single RUL nodule, and 2 left upper lobe lung nodules (evidence on PET from 09/08/16). Biopsy showing adenocarcinoma. She was started on keytruda 08/2016. She experienced metabolic CR. On 01/24/19 she had a PET-CT which showed a new hypermetabolic ROSANNA nodule measuring 7 mm. This has steadily grown on serial CTs, now measuring 1.2 cm on scan from 01/23/20. 03/24/20-03/28/20 SBRT to ROSANNA nodule 60 Gy in [address] chest 06/23/20 with response in the treated lesion, new 0.7 cm round RLL nodule. Recent data: 09/10/20 CT chest Treated ROSANNA lesion smaller, 0.7 cm from 0.9 cm New 1.4 cm curvilinear pleural-based lesion in the RUL, suspicious for inflammatory RLL round nodule decreased in size to 0.5 cm from 0.7 cm Interval History Claudia has stable LANIER and cough, has added nebulized treatments per Dr. Napoles recently, this has been helpful. She is down to 5 cigarettes per day, has started using marijuana to supplant cigarette use and stimulate appetite. Reports she has poor appetite at home, only eats 1 evening meal per day. However, when she is out to eat she has improved appetite. Current Therapy Keytruda q3w Stage [id number] ROSANNA NSCLC (presumed) stage IA2 Social History: Current 03/03 ppd smoker 40+ pack year Non-drinker Smokes marijuana Allergies / Meds Allergies: Coded Allergies: pregabalin (Verified Allergy, Unknown, 06/01/18) varenicline (Verified Allergy, Unknown, 06/01/18) Home Meds Active Scripts Benzonatate (Tessalon Perle) 100 Mg Capsule, 1 CAP PO TID for cough for 10 Days, #30 CAP Prov:JOEL PIZANO MD FACP 07/09/20 Levothyroxine Sodium (LEVOTHYROXINE SODIUM) 50 Mcg Tab, 50 MCG PO DAILY for 30 Days, #30 TAB 2 Refills Prov:Vida Teresa MD 07/04/19 Ipratropium/Albuterol Sulfate (Combivent Respimat 20-100 Mcg) 4 Gm Mist.inhal, 1 PUFF INH QID, #1 INHALER Prov:Malaika Ritchie RNNP 12/01/18 Ondansetron (Ondansetron Odt) 4 Mg Tab, 4 MG PO Q6P PRN for NAUSEA for 7 Days, #10 TAB Prov:JULIUS CURRAN LEAD JAVASCRIPT ENGINEER 05/11/18 Reported Medications Budesonide (Budesonide) 0.5 Mg/2 Ml Ampul.neb, 1 VIAL INH BID 09/10/20 Albuterol Sulfate (Albuterol Sulfate Hfa) 8.5 Gm Hfa.aer.ad, 1 PUFF INH QID 09/10/20 Vit D3-Vit K/Berberine/Hops (Ostera Tablet) 1 Each Tablet, 1 TAB PO, TAB 07/09/20 Covid-19 Vacc,Mrna(Moderna)/Pf (Moderna Covid19 Vacc(Unapprov)) 100 Mcg/0.5 Ml Vial, 100 MCG IM, VIAL 07/09/20 [Pembrolizumab 200MG] No Conflict Check, 1 DOSE INJ ASDIRECTED EVERY 3 WEEKS. DUE 03/10/18. 03/08/18 Omeprazole (Omeprazole) 20 Mg Cap, 20 MG PO BID 03/08/18 Rosuvastatin Calcium (Rosuvastatin Calcium) 20 Mg Tab, 20 MG PO QHS 03/08/18 Aspirin (Aspirin EC) 81 Mg Tab, 81 MG PO QHS 12/16/17 Umeclidinium [place] (Incruse Ellipta) 62.5 Mcg/Inh Inh, 62.5 MCG INH QHS 12/16/17 Diltiazem HCl (Diltiazem HCl) 60 Mg Tab, 60 MG PO QHS 05/26/15 Fluticasone Propion/Salmeterol (Advair Hfa 230-21 Mcg Inhaler) 1 Aer Aer, 1 PUFF INH DAILY, INHALER 05/26/15 Review of Systems Review of Systems Constitutional: Reports: Fatigue, Weight Loss Eyes: Denies: Pain HEENT: Denies: Head Aches Skin: Denies: Rash Pulmonary: Reports: Dyspnea, Cough, Pleuritic Chest Pain Cardiovascular: Denies: Chest Pain, Orthopnea Gastrointestinal: Denies: Nausea, Vomiting, Abdominal Pain Musculoskeletal: Denies: Neck pain, Back pain Neurological: Denies: Weakness, Numbness Psych: Reports: Mood Normal Physical Examination Vital Signs Wt 98 lbs T 97 P 77 RR 20 BP 136/79 O2 98% Pain 0 Fatigue 1 General Exam: Positive: Alert, Cooperative, No Acute Distress Eye Exam: Positive: PERRLA, EOMI ENT EXAM: Positive: Atraumatic, Pharynx Normal Neck Exam: Positive: Supple; Negative: Lymphadenopathy Chest Exam: Positive: Clear to auscultation, Normal air movement (Quiet breath sounds throughout); Negative: Rhonchi Heart Exam: Positive: Rate Normal, Regular Rhythm Abdomen Exam: Positive: Normal bowel sounds, Soft Extremity Exam: Negative: Edema Skin Exam: Positive: Nl turgor and temperature Neuro Exam: Positive: Normal Gait, Normal Speech, Cranial Nerves 3-12 NL Psych Exam: Positive: Mental status NL Diagnostic and Laboratory Diagnostic Review Radiologic images, relevant labs and pathology reports were personally reviewed and discussed with Ms. Robles. Assessment and Plan Impression Assessment Ms. Robles is a 60 year old female current smoker with NSCLC diagnosed in 2017 with bilateral lung nodules unclear if synchronous primaries or M1a. She has had a durable response to keytruda monotherapy (now s/p cycle 54) and was seen 03/05/20 for consideration of SBRT for a metachronous ROSANNA nodule which had grown on serial CT scans and was concerning for a new primary cancer. She completed SBRT to the ROSANNA nodule 60 Gy in 5 fractions on 03/28/20. Seen today for ongoing surveillance of the chest. Her CT scan is reassuring with respect to the treated lesion, however there is a new mildly suspicious RUL pleural-based lesion, which although likely inflammatory based on the band-like morphology, warrants close follow up. Thus I will scan again in 3-4 months. She continues to do well with keytruda. Her COPD appears well compensated, and she seems to be unaffected by the SBRT. We discussed that the 10 lbs of weight loss since May is concerning, she attributes it to poor appetite. She was encouraged to supplement and/or count her calories up to 1500 per day, which for a woman her size and activity level should stabilize her weight loss. She is now smoking marijuana which may help her appetite longer term. We also spent 4 minutes discussing smoking cessation, I encouraged her to use the marijuana in lieu of cigarettes, and I offered to prescribe chantix, she however would like to try without prescription medication. Will revisit this at next appointment. Performance Status ECOG [address] chest in 3-4 months Ms. Robles was encouraged to call with questions or concerns in the interim period . Billing Statement Total time of [29] minutes was spent preparing for the visit [2], obtaining HPI [8], examining the patient [2], reviewing diagnostic tests [2], discussing management options [6], coordinating care [1], and writing this note [8]. JOLLY DILL MD Sep 17, 2020 14:33
== END ==
LOC: M ONCR 12:49
PROVIDERS: ATTEND General Practice
DX: C34.12 Malignant neoplasm of upper lobe, left bronchus or lung (principal); J44.9 Chronic obstructive pulmonary disease, unspecified; R91.1 Solitary pulmonary nodule; F17.210 Nicotine dependence, cigarettes, uncomplicated; Z79.82 Long term (current) use of aspirin; Z79.890 Hormone replacement therapy; Z79.899 Other long term (current) drug therapy; Z92.3 Personal history of irradiation

== ENCOUNTER → 2020-12-15 | Outpatient (CLI) | payer MEDICARE, MEDICAID ==
[~2020-12-15] MED LIST changes: +ISOVUE-370 76% 100ML VIAL ONE; +SERT25TA85 PO; +TIZA2CAP6 PO; +VALA1TAB5 PO
--- NOTE | 2020-12-15 15:49 | REP ---
INDICATION: LUNG CA, MULTIPLE NODULES COMPARISON: Multiple the latest 09/10/2020 noncontrast enhanced exam TECHNIQUE: Standard helical technique after the intravenous administration of 100 cc Isovue 370 FINDINGS: No mediastinal or hilar adenopathy has developed. There are no pleural or pericardial effusion. There is no significant change in the appearance of the imaged upper abdomen or imaged osseous structures. Evaluation of the lung woodruff shows lung field hyperexpansion status quo. There is cylindrical bronchiectasis status quo. There is a 5 mm size nodule in the right lower lobe which is unchanged. The asymmetric nodule seen previously in the posterior right upper lobe has gotten smaller today measuring 7 mm in the same dimension as the prior exam when it measured 1.4 cm. The smaller nodule seen in the right lower lobe is stable. The spiculated nodule seen in the left upper lobe which previously measured 7 mm is completely unchanged. No new abnormal nodules have developed. IMPRESSION: 1. The right upper lobe density seen on the prior exam suspicious for pneumonitis has improved as described above. 2. Multiple stable nodules as described above. 3. Stable appearing chronic lung field changes as described above. <Electronically signed by Jaleel Sierra > 12/15/20 [id number]
== END ==
LOC: M PLAIMG 12:56
PROVIDERS: ATTEND General Practice
DX: C34.12 Malignant neoplasm of upper lobe, left bronchus or lung (principal)
CPT/HCPCS: 71260; Q9967

== ENCOUNTER → 2020-12-26 | Outpatient (CLI) | payer MEDICARE, MEDICAID ==
[~2020-12-26] MED LIST changes: -ISOVUE-370 76% 100ML VIAL ONE
--- NOTE | 2020-12-26 13:08 | RADONC ---
Radiation Oncology Hx/FUP Radiation Oncology Hx/FUP Date of Service: Dec 26, 2020 Pt Identifier Claudia Robles is a 60 year old female current smoker with NSCLC diagnosed in 2017 with bilateral lung nodules unclear if synchronous primaries or M1a. She has had a durable response to keytruda monotherapy (now s/p cycle 54) and was seen 03/05/20 for consideration of SBRT for a metachronous ROSANNA nodule which had grown on serial CT scans and was concerning for a new primary cancer. She completed SBRT to the ROSANNA nodule 60 Gy in 5 fractions on 03/28/20. Seen today for ongoing surveillance of the chest. Diagnosis/Treatment History Oncologic History Presented in 2017 with BL lung nodules a single RUL nodule, and 2 left upper lobe lung nodules (evidence on PET from 09/08/16). Biopsy showing adenocarcinoma. She was started on keytruda 08/2016. She experienced metabolic CR. On 01/24/19 she had a PET-CT which showed a new hypermetabolic ROSANNA nodule measuring 7 mm. This has steadily grown on serial CTs, now measuring 1.2 cm on scan from 01/23/20. 03/24/20-03/28/20 SBRT to ROSANNA nodule 60 Gy in [address] chest 06/23/20 with response in the treated lesion, new 0.7 cm round RLL nodule. 09/10/20 CT chest with treated ROSANNA lesion smaller, 0.7 cm from 0.9 cm, new 1.4 cm curvilinear pleural-based lesion in the RUL, suspicious for inflammatory, RLL round nodule decreased in size to 0.5 cm from 0.7 cm Recent data: 12/15/20 CT chest IMPRESSION: 1. The right upper lobe density seen on the prior exam suspicious for pneumonitis has improved as described above. 2. Multiple stable nodules as described above. 3. Stable appearing chronic lung field changes as described above. Interval History Claudia had shingles last month affecting the left breast and underarm which was excruciatingly painful. She has recovered from this with only minor persistent paresthesias. She has no breathing concerns at this time. She is apprehensive of winter which usually brings out more SOB and LANIER. She has follow up with Dr. Napoles next month however. She is also due for screening mammograms and has these arranged. Overall she is coping well with her condition and ongoing challenges. Trying to gain weight, marijuana helpful for this. Current Therapy Keytruda q3w Stage [id number] ROSANNA NSCLC (presumed) stage IA2 Social History: Current 03/03 ppd smoker 40+ pack year Non-drinker Smokes marijuana Allergies / Meds Allergies: Coded Allergies: pregabalin (Verified Allergy, Unknown, 06/01/18) varenicline (Verified Allergy, Unknown, 06/01/18) Home Meds Active Scripts Levothyroxine Sodium (LEVOTHYROXINE SODIUM) 50 Mcg Tab, 50 MCG PO DAILY for 30 Days, #30 TAB 5 Refills Prov:JOEL PIZANO MD FACP 10/14/20 Benzonatate (Tessalon Perle) 100 Mg Capsule, 1 CAP PO TID for cough for 10 Days, #30 CAP Prov:JOEL PIZANO MD FACP 07/09/20 Ipratropium/Albuterol Sulfate (Combivent Respimat 20-100 Mcg) 4 Gm Mist.inhal, 1 PUFF INH QID, #1 INHALER Prov:Malaika Ritchie RNNP 12/01/18 Ondansetron (Ondansetron Odt) 4 Mg Tab, 4 MG PO Q6P PRN for NAUSEA for 7 Days, #10 TAB Prov:JULIUS CURRAN CHARGE OPERATOR 05/11/18 Reported Medications Tizanidine HCl (Tizanidine HCl) 2 Mg Capsule, 2 CAP PO PRN for 30 Days, CAP 12/03/20 Sertraline Hcl (Sertraline HCl) 25 Mg Tablet, 1 TAB PO DAILY for 30 Days, #30 TAB 12/03/20 Valacyclovir HCl (Valacyclovir) 1,000 Mg Tablet, 1 GRAM PO TID for 7 Days, #21 TAB shingles 12/03/20 Budesonide (Budesonide) 0.5 Mg/2 Ml Ampul.neb, 1 VIAL INH BID 09/10/20 Albuterol Sulfate (Albuterol Sulfate Hfa) 8.5 Gm Hfa.aer.ad, 1 PUFF INH QID 09/10/20 Vit D3-Vit K/Berberine/Hops (Ostera Tablet) 1 Each Tablet, 1 TAB PO DAILY, TAB 07/09/20 Covid-19 Vacc,Mrna(Moderna)/Pf (Moderna Covid19 Vacc(Unapprov)) 100 Mcg/0.5 Ml Vial, 100 MCG IM, VIAL 07/09/20 Omeprazole (Omeprazole) 20 Mg Cap, 20 MG PO BID 03/08/18 Rosuvastatin Calcium (Rosuvastatin Calcium) 20 Mg Tab, 20 MG PO QHS 03/08/18 Aspirin (Aspirin EC) 81 Mg Tab, 81 MG PO QHS 12/16/17 Umeclidinium [place] (Incruse Ellipta) 62.5 Mcg/Inh Inh, 62.5 MCG INH QHS 12/16/17 Diltiazem HCl (Diltiazem HCl) 60 Mg Tab, 60 MG PO QHS 05/26/15 Fluticasone Propion/Salmeterol (Advair Hfa 230-21 Mcg Inhaler) 1 Aer Aer, 1 PUFF INH DAILY, INHALER 05/26/15 Review of Systems Review of Systems Constitutional: Reports: Fatigue; Denies: Weight Loss Eyes: Denies: Pain HEENT: Denies: Head Aches Skin: Reports: Lesions (Resolving shingles lesions left chest); Denies: Rash Pulmonary: Reports: Dyspnea; Denies: Cough Cardiovascular: Denies: Chest Pain, Palpitations Gastrointestinal: Denies: Abdominal Pain Endocrine: Denies: Cold Intolerance Musculoskeletal: Denies: Neck pain, Back pain Neurological: Denies: Weakness, Numbness Psych: Reports: Mood Normal Physical Examination Vital Signs Wt 95 lbs T 97.1 P 87 RR 16 BP 150/88 O2 97% Pain 0 Fatigue 1 General Exam: Alert, Cooperative, No Acute Distress Eye Exam: PERRLA, EOMI ENT EXAM: Atraumatic Neck Exam: Supple Chest Exam: Clear to auscultation, Normal air movement Heart Exam: Rate Normal, Regular Rhythm Abdomen Exam: Soft Extremity Exam: Negative: Edema Skin Exam: Nl turgor and temperature, Rash Neuro Exam: Normal Gait, Normal Speech, Cranial Nerves 3-12 NL Psych Exam: Mental status NL Diagnostic and Laboratory Diagnostic Review Radiologic images, relevant labs and pathology reports were personally reviewed and discussed with Ms. Robles. Assessment and Plan Impression Assessment Ms. Robles is a 60 year old female current smoker with NSCLC diagnosed in 2017 with bilateral lung nodules unclear if synchronous primaries or M1a. She has had a durable response to keytruda monotherapy (now s/p cycle 54) and was seen 1/6/21 for consideration of SBRT for a metachronous ROSANNA nodule which had grown on serial CT scans and was concerning for a new primary cancer. She completed SBRT to the ROSANNA nodule 60 Gy in 5 fractions on 03/28/20. Seen today for ongoing surveillance of the chest. Her CT chest is stable, this is reassuring. I think that scans again in 6 months would be appropriate so I will order. In the meantime she has appropriate pulmonology and mammographic follow up as well. We did not discuss smoking cessation today, but can do that at next visit. Performance Status ECOG 1 Plan Follow up in [address] chest Ms. Robles was encouraged to call with questions or concerns in the interim period. Billing Statement Total time of [24] minutes was spent preparing for the visit [1], obtaining HPI [6], examining the patient [1], reviewing diagnostic tests [3], discussing management options [5], coordinating care [1], and writing this note [7]. JOLLY DILL MD Dec 26, 2020 13:08
== END ==
LOC: M ONCR 10:46
PROVIDERS: ATTEND General Practice
DX: C34.12 Malignant neoplasm of upper lobe, left bronchus or lung (principal); F17.210 Nicotine dependence, cigarettes, uncomplicated; R20.2 Paresthesia of skin; Z79.890 Hormone replacement therapy; Z79.899 Other long term (current) drug therapy; Z88.1 Allergy status to other antibiotic agents; Z92.21 Personal history of antineoplastic chemotherapy

== ENCOUNTER → 2021-01-05 | Outpatient (CLI) | payer MEDICARE, MEDICAID ==
[~2021-01-05] MED LIST changes: +BENZ-18 PO; +SERT-141 PO
[2021-01-05 11:35] LABS: BASO % 0.5 % (0.0-1.0); EOS # 0.3 10^3/uL (0.0-0.5); EOS % 4.1 % (0.0-3.0); HEMATOCRIT 44.6 % (36.0-47.0); HEMOGLOBIN 14.6 g/dl (12.0-15.5); LYMPH # 1.7 10^3/uL (1.5-5.0); LYMPH % 26.3 % (24.0-44.0); MEAN CORPUSCULAR HGB CONC 32.7 g/dl (32.0-36.5); MEAN CORPUSCULAR VOLUME 94.7 fl (80.0-96.0); MONO # 0.5 10^3/uL (0.0-0.8); MONO % 8.2 % (2.0-8.0); NEUTROPHILS % 60.4 % (36.0-66.0); PLATELET COUNT, AUTOMATED 183 10^3/uL (150-450); RED BLOOD COUNT 4.71 10^6/uL (4.00-5.40); WHITE BLOOD COUNT 6.6 10^3/uL (4.0-10.0)
[2021-01-05 11:54] LABS: HEMOGLOBIN A1c 5.3 %
[2021-01-05 12:37] LABS: ALBUMIN 4.1 GM/DL (3.2-5.2); ALT/SGPT 30 U/L (12-78); BILIRUBIN,TOTAL 0.4 MG/DL (0.2-1.0); BLOOD UREA NITROGEN 14 MG/DL (7-18); CARBON DIOXIDE LEVEL 26 MEQ/L (21-32); CHLORIDE LEVEL 108 MEQ/L (98-107); CREATININE FOR GFR 0.68 MG/DL (0.55-1.30); FREE T4 1.32 NG/DL (0.76-1.46); GLOMERULAR FILTRATION RATE > 60.0 (>51); GLUCOSE, FASTING 95 MG/DL (70-100); MAGNESIUM LEVEL 2.1 MG/DL (1.8-2.4); NT-PRO BNP 83 PG/ML (<125); POTASSIUM SERUM 4.4 MEQ/L (3.5-5.1); PTH INTACT 29.3 PG/ML (18.5-88.0); SODIUM LEVEL 141 MEQ/L (136-145); THYROID STIMULATING HORMONE 0.616 uIU/ML (0.358-3.740); TOTAL 25(OH) VITAMIN D 45.1 NG/ML (30.0-100.0); TOTAL PROTEIN 7.1 GM/DL (6.4-8.2)
[2021-01-05 12:40] LABS: MALB URINE SIEMENS 9.3 MG/L; MAU/CREAT RATIO 26.5 MCG/MG (0.0-30.0)
== END ==
LOC: M PLALAB 09:11
PROVIDERS: ATTEND Family Medicine
DX: E55.9 Vitamin D deficiency, unspecified (principal); I10 Essential (primary) hypertension; E03.2 Hypothyroidism due to medicaments and other exogenous substances; R73.01 Impaired fasting glucose; Z79.899 Other long term (current) drug therapy
CPT/HCPCS: 36415; 80053; 82043; 82306; 83036; 83735; 83880; 83970; 84439; 84443; 85025; 90682; G0008; G0463

== ENCOUNTER → 2021-02-09 | Outpatient (CLI) | payer MEDICARE, MEDICAID | LOC: M WHC 10:40 | PROVIDERS: ATTEND Family Medicine | DX: Z12.31 Encounter for screening mammogram for malignant neoplasm of breast (principal); Z53.8 Procedure and treatment not carried out for other reasons ==

== ENCOUNTER → 2021-03-30 | Outpatient (CLI) | payer MEDICARE, MEDICAID ==
[~2021-03-30] MED LIST changes: -BENZ-18 PO; -SERT-141 PO
== END ==
LOC: M PLARAD 15:17
PROVIDERS: ATTEND Internal Medicine Hematology & Oncology
DX: C34.12 Malignant neoplasm of upper lobe, left bronchus or lung (principal); J43.2 Centrilobular emphysema; I65.23 Occlusion and stenosis of bilateral carotid arteries; I70.0 Atherosclerosis of aorta; I25.10 Atherosclerotic heart disease of native coronary artery without angina pectoris
CPT/HCPCS: 78815; A9552

== ENCOUNTER → 2021-04-15 | Outpatient (REF) | payer MEDICARE, MEDICAID ==
[2021-04-15 16:02] LABS: ALBUMIN 4.1 GM/DL (3.2-5.2); ALT/SGPT 33 U/L (12-78); AMYLASE 45 U/L (25-115); BILIRUBIN,TOTAL 0.4 MG/DL (0.2-1.0); BLOOD UREA NITROGEN 12 MG/DL (7-18); CALCIUM LEVEL 8.8 MG/DL (8.8-10.2); CARBON DIOXIDE LEVEL 28 MEQ/L (21-32); CHLORIDE LEVEL 108 MEQ/L (98-107); CREATININE FOR GFR 0.74 MG/DL (0.55-1.30); GLOMERULAR FILTRATION RATE > 60.0 (>45); GLUCOSE, FASTING 93 MG/DL (70-100); LIPASE 135 U/L (73-393); POTASSIUM SERUM 3.8 MEQ/L (3.5-5.1); SODIUM LEVEL 143 MEQ/L (136-145)
[2021-04-15 17:27] LABS: HEMOGLOBIN A1c 5.4 %
== END ==
LOC: M LABDRWCV 15:30
PROVIDERS: ATTEND General Practice
DX: C34.11 Malignant neoplasm of upper lobe, right bronchus or lung (principal); Z79.899 Other long term (current) drug therapy

== ENCOUNTER → 2021-05-12 | Outpatient (CLI) | payer MEDICARE, MEDICAID ==
[~2021-05-12] MED LIST changes: +AZIT-12 PO; +BENZ-18 PO; -D31000TA2 PO; +LEVO25TA5 PO; +PRED20TA PO; +SERT-141 PO; +VITA100093 PO; +VITA200010 PO
== END ==
LOC: M ONCR 12:23
PROVIDERS: ATTEND General Practice
DX: C34.12 Malignant neoplasm of upper lobe, left bronchus or lung (principal); F17.210 Nicotine dependence, cigarettes, uncomplicated

== ENCOUNTER → 2021-05-26 | Outpatient (REF) | payer MEDICARE, MEDICAID ==
[~2021-05-26] MED LIST changes: -AZIT-12 PO; -LEVO25TA5 PO; -PRED20TA PO; -VITA200010 PO
[2021-05-26 16:45] LABS: ALT/SGPT 33 U/L (12-78); BILIRUBIN,TOTAL 0.4 MG/DL (0.2-1.0); BLOOD UREA NITROGEN 13 MG/DL (7-18); CALCIUM LEVEL 8.8 MG/DL (8.8-10.2); CARBON DIOXIDE LEVEL 30 MEQ/L (21-32); CHLORIDE LEVEL 108 MEQ/L (98-107); CHOLESTEROL LEVEL 127 MG/DL (<200); CHOLESTEROL RISK RATIO 2.048 (<5); CREATININE FOR GFR 0.64 MG/DL (0.55-1.30); GLOMERULAR FILTRATION RATE > 60.0 (>45); GLUCOSE, FASTING 91 MG/DL (70-100); HDL CHOLESTEROL 62 MG/DL (>40); LDL CHOLESTEROL 53 MG/DL (<100); NON-HDL-C 65 MG/DL; POTASSIUM SERUM 3.9 MEQ/L (3.5-5.1); SODIUM LEVEL 142 MEQ/L (136-145); TOTAL PROTEIN 6.6 GM/DL (6.4-8.2); TRIGLYCERIDES LEVEL 60 MG/DL (<150)
[2021-05-26 16:53] LABS: PTH INTACT 32.2 PG/ML (18.5-88.0); TOTAL 25(OH) VITAMIN D 33.7 NG/ML (30.0-100.0)
[2021-05-26 17:55] LABS: HEMOGLOBIN A1c 5.5 %
== END ==
LOC: M SFHCPLAZ 07:39
PROVIDERS: ATTEND Family Medicine
DX: R73.01 Impaired fasting glucose (principal); E78.2 Mixed hyperlipidemia; E55.9 Vitamin D deficiency, unspecified

== ENCOUNTER 2021-06-08 12:44 | Outpatient (CLI) | payer MEDICARE, MEDICAID ==
[~2021-06-08] VITALS: Ht 152.4 cm; Wt 39.5 kg
[2021-06-08 13:00] VITALS: BP 141/76
[2021-06-08] MEDS ORDERED: ZOLEDRONIC ACID 5 MG in IV 1 EA IV ONE (13:00)
[2021-06-08 13:40] VITALS: BP 122/70
== END 2021-06-08 15:25 | disposition home or self-care (01) ==
LOC: M INFU 12:44
PROVIDERS: ATTEND Family Medicine
DX: M85.80 Other specified disorders of bone density and structure, unspecified site (principal); Z88.8 Allergy status to other drugs, medicaments and biological substances
CPT/HCPCS: 96365; J3489

== ENCOUNTER → 2021-06-15 | Outpatient (CLI) | payer MEDICARE, MEDICAID ==
[~2021-06-15] MED LIST changes: +ISOVUE-370 76% 100ML VIAL As Ordered ONE
== END ==
LOC: M RAD 13:28
PROVIDERS: ATTEND General Practice
DX: C34.90 Malignant neoplasm of unspecified part of unspecified bronchus or lung (principal)
CPT/HCPCS: 71260; Q9967

== ENCOUNTER → 2021-06-24 | Outpatient (CLI) | payer MEDICARE, MEDICAID ==
[~2021-06-24] MED LIST changes: +AZIT-12 PO; -ISOVUE-370 76% 100ML VIAL As Ordered ONE; +PRED20TA PO
== END ==
LOC: M ONCR 10:59
PROVIDERS: ATTEND General Practice
DX: C34.12 Malignant neoplasm of upper lobe, left bronchus or lung (principal); F17.210 Nicotine dependence, cigarettes, uncomplicated; Z79.899 Other long term (current) drug therapy; Z88.8 Allergy status to other drugs, medicaments and biological substances; Z92.21 Personal history of antineoplastic chemotherapy; Z92.3 Personal history of irradiation

== ENCOUNTER → 2021-07-06 | Outpatient (CLI) | payer MEDICARE, MEDICAID ==
[~2021-07-06] MED LIST changes: +E-Z-GAS II EFFERVESCENT PACKET (SODIUM BICARB./CITRIC ACID/SIMETHICONE) As Ordered ONE; +E-Z-HD 98% w/w 340GM SUSP BTL As Ordered ONE; +E-Z-PAQUE 96% w/w SUSP 176GM BTL As Ordered ONE
== END ==
LOC: M RAD 10:10
PROVIDERS: ATTEND Family Medicine
DX: R63.4 Abnormal weight loss (principal)

== ENCOUNTER → 2021-07-30 | Outpatient (CLI) | payer MEDICARE, MEDICAID ==
[~2021-07-30] MED LIST changes: -E-Z-GAS II EFFERVESCENT PACKET (SODIUM BICARB./CITRIC ACID/SIMETHICONE) As Ordered ONE; -E-Z-HD 98% w/w 340GM SUSP BTL As Ordered ONE; -E-Z-PAQUE 96% w/w SUSP 176GM BTL As Ordered ONE; +LEVO25TA5 PO; +VITA200010 PO
== END ==
LOC: M PLALAB 11:01
PROVIDERS: ATTEND Physician Assistant
DX: R10.9 Unspecified abdominal pain (principal)

== ENCOUNTER → 2021-10-27 | Outpatient (CLI) | payer MEDICARE, MEDICAID ==
[~2021-10-27] MED LIST changes: +LEVO1TAB40 PO; -LEVO750T13 PO; +ZOLP5TAB PO
== END ==
LOC: M ONCR 13:31
PROVIDERS: ATTEND General Practice
DX: C34.12 Malignant neoplasm of upper lobe, left bronchus or lung (principal); F17.210 Nicotine dependence, cigarettes, uncomplicated; R64 Cachexia; Z79.52 Long term (current) use of systemic steroids; Z79.890 Hormone replacement therapy; Z79.899 Other long term (current) drug therapy; Z88.8 Allergy status to other drugs, medicaments and biological substances; Z92.21 Personal history of antineoplastic chemotherapy; Z92.3 Personal history of irradiation

== ENCOUNTER → 2021-11-04 | Outpatient (CLI) | payer MEDICARE, MEDICAID ==
[~2021-11-04] MED LIST changes: +GUAI100S51 PO; +MORP10SO2 PO; +SENN-80 PO
== END ==
LOC: M ONCR 12:54
PROVIDERS: ATTEND Dietitian, Registered
DX: C34.90 Malignant neoplasm of unspecified part of unspecified bronchus or lung (principal); J44.9 Chronic obstructive pulmonary disease, unspecified; Z92.21 Personal history of antineoplastic chemotherapy

== ENCOUNTER → 2021-12-14 | Outpatient (CLI) | payer MEDICARE, MEDICAID ==
[~2021-12-14] MED LIST changes: +GASTROGRAFIN SOLUTION 30ML (Q9963) As Ordered ONE; -GUAI100S51 PO; +ISOVUE-370 76% 100ML VIAL As Ordered ONE; -MORP10SO2 PO; -SENN-80 PO
== END ==
LOC: M RAD 13:54
PROVIDERS: ATTEND Internal Medicine Medical Oncology
DX: C34.90 Malignant neoplasm of unspecified part of unspecified bronchus or lung (principal)
CPT/HCPCS: 71260; 74177; Q9963; Q9967

== ENCOUNTER → 2022-01-19 | Outpatient (CLI) | payer MEDICARE, MEDICAID ==
[~2022-01-19] MED LIST changes: -GASTROGRAFIN SOLUTION 30ML (Q9963) As Ordered ONE; +GUAI100S51 PO; -ISOVUE-370 76% 100ML VIAL As Ordered ONE; +MORP10SO2 PO; +SENN-80 PO
== END ==
LOC: M PAL 13:22
PROVIDERS: ATTEND Nurse Practitioner Adult Health
DX: C34.12 Malignant neoplasm of upper lobe, left bronchus or lung (principal); F17.210 Nicotine dependence, cigarettes, uncomplicated; E78.00 Pure hypercholesterolemia, unspecified; G89.29 Other chronic pain; J44.9 Chronic obstructive pulmonary disease, unspecified; I10 Essential (primary) hypertension; R06.02 Shortness of breath; R63.4 Abnormal weight loss; R53.83 Other fatigue; R41.89 Other symptoms and signs involving cognitive functions and awareness; M81.0 Age-related osteoporosis without current pathological fracture; M47.892 Other spondylosis, cervical region; R09.3 Abnormal sputum; Z66 Do not resuscitate; Z92.3 Personal history of irradiation; Z79.52 Long term (current) use of systemic steroids; Z79.51 Long term (current) use of inhaled steroids; Z79.891 Long term (current) use of opiate analgesic; Z79.899 Other long term (current) drug therapy; Z51.5 Encounter for palliative care; Z88.8 Allergy status to other drugs, medicaments and biological substances

== ENCOUNTER → 2022-06-24 | Outpatient (REF) | payer MEDICARE, MEDICAID ==
[~2022-06-24] MED LIST changes: +SENN-186 PO; -SENN-80 PO; +VENTAER INH
== END ==
LOC: M SFHCPLAZ 15:58
PROVIDERS: ATTEND Family Medicine
DX: R06.09 Other forms of dyspnea (principal)

== ENCOUNTER → 2022-07-20 | Outpatient (REF) | payer MEDICARE, MEDICAID ==
[2022-07-20 17:42] LABS: BASO # 0.1 10^3/uL (0.0-0.2); BASO % 0.6 % (0.0-1.0); EOS # 0.2 10^3/uL (0.0-0.5); EOS % 2.1 % (0.0-3.0); HEMATOCRIT 44.3 % (36.0-47.0); HEMOGLOBIN 13.9 g/dl (12.0-15.5); LYMPH # 1.8 10^3/uL (1.5-5.0); LYMPH % 22.5 % (24.0-44.0); MEAN CORPUSCULAR HEMOGLOBIN 29.6 pg (27.0-33.0); MEAN CORPUSCULAR HGB CONC 31.4 g/dl (32.0-36.5); MEAN CORPUSCULAR VOLUME 94.3 fl (80.0-96.0); MONO # 0.6 10^3/uL (0.0-0.8); MONO % 6.8 % (2.0-8.0); NEUTROPHILS # 5.5 10^3/uL (1.5-8.5); NEUTROPHILS % 67.9 % (36.0-66.0); PLATELET COUNT, AUTOMATED 223 10^3/uL (150-450); WHITE BLOOD COUNT 8.1 10^3/uL (4.0-10.0)
[2022-07-20 17:44] LABS: ALBUMIN 4.2 G/DL (3.2-5.2); ALKALINE PHOSPHATASE 72 U/L (46-116); ALT/SGPT 40 U/L (7.0-40); AST/SGOT 35 U/L (<34); BILIRUBIN,TOTAL 0.4 MG/DL (0.3-1.2); BLOOD UREA NITROGEN 12 MG/DL (9-23); CALCIUM LEVEL 9.6 MG/DL (8.3-10.6); CARBON DIOXIDE LEVEL 34 MMOL/L (20-31); CHLORIDE LEVEL 104 MMOL/L (98-107); CREATININE FOR GFR 0.56 MG/DL (0.55-1.30); GLOMERULAR FILTRATION RATE > 60.0 (>45); GLUCOSE, FASTING 131 MG/DL (74-106); POTASSIUM SERUM 4.3 MMOL/L (3.5-5.1); SODIUM LEVEL 140 MMOL/L (136-145)
[2022-07-20 17:48] LABS: FERRITIN 24.8 NG/ML (7.3-270.7); THYROID STIMULATING HORMONE 1.424 uIU/ML (0.55-4.78)
== END ==
LOC: M SFHCCLAY 10:55
PROVIDERS: ATTEND Family Medicine
DX: R06.09 Other forms of dyspnea (principal); M47.9 Spondylosis, unspecified; J84.9 Interstitial pulmonary disease, unspecified

== ENCOUNTER → 2022-07-20 | Outpatient (CLI) | payer MEDICARE, MEDICAID | LOC: M CLY 11:10 | PROVIDERS: ATTEND Family Medicine | DX: M47.9 Spondylosis, unspecified (principal); J84.9 Interstitial pulmonary disease, unspecified ==

== ENCOUNTER → 2023-04-08 | Outpatient (REF) | payer MEDICARE, MEDICAID ==
[~2023-04-08] MED LIST changes: -ROSU20TA5 OR; -ROSU20TA5 PO; +ROSU20TA61 OR; +ROSU20TA61 PO
== END ==
LOC: M SFHCPLAZ 14:26
PROVIDERS: ATTEND Family Medicine
DX: D50.9 Iron deficiency anemia, unspecified (principal); I10 Essential (primary) hypertension